=== PATIENT | female | born 1985 | race Caucasian/White ===

== ENCOUNTER 2021-09-08 12:51 | Outpatient (REF) | payer OTHER, SELFPAY ==
[2021-09-08 14:14] LABS: Binax Internal Control QC Valid; Binax Now Covid-19 Ag Negative (Negative)
== END 2021-09-08 12:52 | disposition home or self-care (01) ==
LOC: HO.LAB 12:51
PROVIDERS: Visit Provider Internal Medicine
DX: Z20.822 Contact with and (suspected) exposure to COVID-19 (principal)
CPT/HCPCS: 36415; C9803

== ENCOUNTER 2021-11-27 07:51 | Emergency (ER) | payer OTHER, SELFPAY ==
--- NOTE | ~2021-11-27 | CT_ITS ---
EXAMINATION: CT ABDOMEN AND PELVIS WITH CONTRAST CLINICAL INFORMATION: Left lower quadrant pain. Diarrhea. Evaluate for diverticulitis. COMPARISON: None TECHNIQUE: Multidetector volumetric images were obtained from the superior aspect of the liver through the pubic symphysis following administration 85 mL of Omnipaque 350 intravenous contrast. Sagittal and coronal reformatted images were obtained on the technologist's workstation. Oral contrast: Yes This CT examination was performed using dose optimization techniques as appropriate, variously including the following: *Automated exposure control *Adjustment of mA and/or kV according to patient size (this includes techniques or standardized protocols for targeted exams where dose is matched to indication/reason for exam; i.e. extremities or head) *Use of iterative reconstruction technique DLP: 406 mGy-cm FINDINGS: LUNG BASES: The visualized lung bases are unremarkable. LIVER, GALLBLADDER, AND BILIARY TREE: The liver is normal in size, shape, and attenuation. No focal hepatic lesion or biliary ductal dilatation is present. The gallbladder is unremarkable with no evidence of radiopaque gallstones, gallbladder wall thickening, or obvious pericholecystic inflammatory changes. PANCREAS: Unremarkable. SPLEEN: Unremarkable. ADRENAL GLANDS: Unremarkable. KIDNEYS AND URETERS: The kidneys are normal in size, shape, and attenuation. No hydronephrosis, hydroureter, or calculi seen. No perinephric stranding. BLADDER: The bladder is empty. GASTROINTESTINAL TRACT: No evidence of diverticulitis or colitis is seen. There are several slightly distended fluid-filled loops of small bowel seen in the lower abdomen and pelvis probably representing an ileus. The small and large bowel is otherwise unremarkable. The appendix is unremarkable. The stomach is unremarkable. ABDOMINAL WALL: No significant hernia is appreciated. LYMPH NODES: There are prominent small bowel mesentery lymph nodes.. Largest lymph nodes are upper normal in size, for example right lower quadrant measuring 1 cm axial image 54 series 3. No other adenopathy is seen. There is no ascites. VASCULAR: Unremarkable. PELVIC VISCERA: There is an IUD in the uterus in satisfactory position. The uterus and adnexa are otherwise unremarkable. There is a small right hernial or labial cyst measuring 1 cm. OSSEOUS STRUCTURES: Unremarkable. CT/CT abdomen pelvis w con IMPRESSION: Small bowel ileus and prominent small bowel mesentery lymph nodes. No evidence of colitis or diverticulitis. Fleischner guidelines were followed.
[2021-11-27 08:54] VITALS: BP 117/68; PULSE 78; RESP 16; TEMP 36.6; O2SAT 100; BMI 23.0
--- NOTE | 2021-11-27 09:05 | ED_ITS ---
HPI - Abdominal Pain General Chief Complaint: General Medical Stated Complaint: flank pain l and r sides Time Seen by Provider: 11/27/21 08:46 Source: patient Mode of arrival: ambulatory Limitations: no limitations History of Present Illness HPI narrative: Patient is a 35-year-old female no significant past medical history. She reports that she has been experiencing diarrhea for 2 weeks. Diarrhea is daily at times will have at least 6 episodes of loose watery diarrhea in a day. Her stools are described as dark brown in color. There is associated cramping diffusely throughout the lower abdomen. She has been using Imodium with some relief. Denies any blood or mucus in stools, denies fevers or chills, denies nausea or vomiting. Today she was concerned as she developed bilateral flank/ side pain upon awakening this morning, 5/10, aching and sharp in nature. Denies dysuria, urinary frequency / hesitancy / urgency, abnormal vaginal discharge. Related Data Allergies Allergy/AdvReac Type Severity Reaction Status Date / Time No Known Allergies Allergy Unverified 05/19/20 19:05 [No Known Allergies*] Review of Systems Review of Systems Constitutional : No Weight loss, No Fever, No Chills ENT/Mouth :? No sore throat, No Rhinorrhea Eyes: No Swelling, No Redness Cardiovascular : No Chest Pain, No SOB, No Edema Respiratory : No Cough, No Sputum, No Wheezing Gastrointestinal : No Nausea, No Vomiting, positive Diarrhea, positive abdominal pain, No Hematochezia, No Melena Genitourinary : No Dysuria, No Urinary Frequency, No Hematuria, No Urgency? Musculoskeletal : No joint pain, No Myalgias, No Joint Swelling Skin : No Skin Lesions, No rash Neuro : No Weakness, No Numbness, No Dizziness, No Headache Psych : No Anxiety/Panic, No Depression Heme/Lymph: No Bruising, No Lymphadenopathy Endocrine : No Polyuria, No Polydipsia Yes all other systems are reviewed and are negative PMFSH Past Medical History Attestation statement: The following information was validated with the patient. Source: old records reviewed Medical History No known health problems Social History Social History Advance Directives: No Advance Directives Information Provided: Yes Physical Exam ED Vital Signs: Vital Signs - 24 hr 11/27/21 08:54 11/27/21 10:35 11/27/21 11:22 Temperature 97.9 F 98.5 F Pulse Rate 78 55 Respiratory Rate 16 18 18 Blood Pressure 117/68 111/52 L Pulse Oximetry 100 100 BMI result Body Mass Index 23.0 Vital signs have been reviewed as normal and appeared to be correct. Blood pressure normal.? Heart rate normal.? Respiration rate normal. Temperature normal.? Oxygen saturation normal. Appearance: Alert.?Oriented to person, place and time. No acute distress.?Normal affect. Eyes: Pupils equal, round and reactive to light.? ENT: Pharynx normal.?? Neck: Normal inspection.? Neck supple.?? CVS: Heart sounds normal. Normal heart rate and rhythm.? Pulses normal.?? Respiratory: No respiratory distress.? Lung sounds clear to auscultation bilaterally?? Abdomen: Soft with LLQ tenderness.. Normoactive bowel sounds. No pulsatile mass.?? Genitourinary: no CVA tenderness Skin: Skin warm and dry.? Normal skin color.? Normal skin turgor.?? Extremities: No lower extremity edema.? No calf ttp? Neuro: Moves all extremities spontaneously. Sensation intact bilaterally. CN II- XII intact. No focal neuro deficits. Ambulates with normal steady gait. Course Course Course Narrative: Patient is a 35-year-old female who is well appearing, nontoxic, afebrile, without tachycardia. She presents for evaluation with concern with bilateral side/flank pain of new onset and persistent diarrhea. Will obtain CBC to evaluate for leukocytosis/ anemia, CMP and lipase to evaluate for abnormal electrolytes /abnormal renal function/ abnormal hepatic/biliary function, Urinalysis to evaluate for infection or microscopic hematuria, and CT the abdomen and pelvis given LLQ tenderness to exclude diverticulitis, colitis, or additional intra-abdominal pathologies. Stool studies to be obtained to exclude infectious process. Medicate with Toradol and Tylenol for pain. Reevaluation(s) Reevaluation #1: CBC reveals a mild leukocytosis 12.3 otherwise normal with CMP, lipase unremarkable. urinalysis is unremarkable, urine test negative. CT of the abdomen reveals a small bowel ileus and prominent small bowel mesentery lymph nodes but no evidence of colitis or diverticulitis. consulted general s urgery revenue enforcement collection agent, Dr. Hughes, He does not feel that patient is a surgical candidate. Time: 12:16 Reevaluation #2: I spoke with patient, used shared decision making, reviewed options for admission to the hospital to receive IV fluids and bowel rest. Patient states that she would prefer to go home, she has her child at home and no one to take care of her. Discussed clear liquid diet with slow progression bland diet including crackers, bananas, rice, soup, toast, and coiled vegetables followed by plain backed or boiled chicken or turkey, avoiding dairy products or foods high in fat agrees. Discussed reasons to return to the emergency department, such as if she is unable to tolerate fluids, has severe/ worsening pain, nausea with persistent vomiting, or inability to move bowels. Advised follow-up with primary care provider in 1-2 days Patient is agreeable with the plan of care. patient has had no episodes of diarrhea while in the emergency department, therefore unable to send stool specimen for studies Time: 12:35 MDM - Abdominal Pain Medical Records Attestation: I reviewed the patient's medical records. Lab Data Attestation: I reviewed the patient's lab results. Result diagrams: 11/27/21 09:26 11/27/21 09:26 Labs: Lab Results 11/27/21 11/27/21 11/27/21 Range/Units 09:26 09:26 10:32 WBC 12.3 H (4.8-10.8) X10*3/uL RBC 4.29 (4.20-5.50) X10*6/uL Hgb 12.0 (12.0-16.0) g/dl Hct 35.8 L (37.0-47.0) % MCV 83.4 (80.0-98.0) fL MCH 28.0 (27.0-33.0) pg MCHC 33.5 (31.0-35.0) g/dl RDW 13.6 (11.0-16.0) % Plt Count 316 (160-400) X10*3/uL MPV 9.4 (9.4-12.3) fL Immature Gran % (Auto) 0.3 (0.0-0.4) % Neut % (Auto) 69.8 (45-73) % Lymph % (Auto) 23.8 (20-40) % [place] % (Auto) 5.7 (2-11) % Eos % (Auto) 0.2 (0-4) % Baso % (Auto) 0.2 (0-2) % Lymph # (Auto) 2.9 (1.2-4.9) X10*3/uL [place] # (Auto) 0.7 (0.1-1.2) X10*3/uL Eos # (Auto) 0.0 (0.0-0.4) X10*3/uL Baso # (Auto) 0.0 (0.0-0.2) X10*3/uL Abs Immat Gran (auto) 0.04 H (0.00-0.03) X10*3/uL Absolute Neuts (auto) 8.5 H (2.0-8.3) x10*3/uL Absolute Nucleated RBC 0.000 (0.0-0.012) X10*3/uL Nucleated RBC % (auto) 0.0 (0.0-0.2) /100WBC Sodium 136 (135-145) mmol/L Potassium 4.4 (3.3-5.1) mmol/L Chloride 105 (96-108) mmol/L Carbon Dioxide 23 (22-29) mmol/L Anion Gap 12 (12-20) BUN 16 (9-16) mg/dL Creatinine 0.70 (0.5-1.4) mg/dL Estim Creat Clear Calc 93.7 Estimated GFR > 60 Random Glucose 97 (60-115) mg/dL Calcium 8.9 (8.4-10.2) mg/dL Magnesium 2.0 (1.6-2.6) mg/dL Total Bilirubin 0.3 (0.0-1.0) mg/dL AST 15 (5-31) U/L ALT 12 (0-31) U/L Alkaline Phosphatase 78 (39-117) U/L Total Protein 7.1 (6.5-8.0) g/dL Albumin 3.9 (3.5-5.0) g/dL Lipase 32 (8-78) U/L Urine Color YELLOW Urine Appearance CLEAR Urine pH 5.5 (5.0-8.0) Ur Specific [place] 1.020 (1.005-1.025) Urine Protein NEG (NEG-TRACE) MG/DL Urine Glucose (UA) NEG (NEG) MG/DL Urine Ketones NEG (NEG) MG/DL Urine Blood NEG (NEG) Urine Nitrite NEG (NEG) Ur Leukocyte Esterase NEG (NEG) Urine Test (NEGATIVE) 11/27/21 Range/Units 10:32 WBC (4.8-10.8) X10*3/uL RBC (4.20-5.50) X10*6/uL Hgb (12.0-16.0) g/dl Hct (37.0-47.0) % MCV (80.0-98.0) fL MCH (27.0-33.0) pg MCHC (31.0-35.0) g/dl RDW (11.0-16.0) % Plt Count (160-400) X10*3/uL MPV (9.4-12.3) fL Immature Gran % (Auto) (0.0-0.4) % Neut % (Auto) (45-73) % Lymph % (Auto) (20-40) % [place] % (Auto) (2-11) % Eos % (Auto) (0-4) % Baso % (Auto) (0-2) % Lymph # (Auto) (1.2-4.9) X10*3/uL [place] # (Auto) (0.1-1.2) X10*3/uL Eos # (Auto) (0.0-0.4) X10*3/uL Baso # (Auto) (0.0-0.2) X10*3/uL Abs Immat Gran (auto) (0.00-0.03) X10*3/uL Absolute Neuts (auto) (2.0-8.3) x10*3/uL Absolute Nucleated RBC (0.0-0.012) X10*3/uL Nucleated RBC % (auto) (0.0-0.2) /100WBC Sodium (135-145) mmol/L Potassium (3.3-5.1) mmol/L Chloride (96-108) mmol/L Carbon Dioxide (22-29) mmol/L Anion Gap (12-20) BUN (9-16) mg/dL Creatinine (0.5-1.4) mg/dL Estim Creat Clear Calc Estimated GFR Random Glucose (60-115) mg/dL Calcium (8.4-10.2) mg/dL Magnesium (1.6-2.6) mg/dL Total Bilirubin (0.0-1.0) mg/dL AST (5-31) U/L ALT (0-31) U/L Alkaline Phosphatase (39-117) U/L Total Protein (6.5-8.0) g/dL Albumin (3.5-5.0) g/dL Lipase (8-78) U/L Urine Color Urine Appearance Urine pH (5.0-8.0) Ur Specific [place] (1.005-1.025) Urine Protein (NEG-TRACE) MG/DL Urine Glucose (UA) (NEG) MG/DL Urine Ketones (NEG) MG/DL Urine Blood (NEG) Urine Nitrite (NEG) Ur Leukocyte Esterase (NEG) Urine Test NEGATIVE (NEGATIVE) Imaging Data CT scan - abdomen: Radiologist's impression: CT/CT abdomen pelvis w con IMPRESSION: Small bowel ileus and prominent small bowel mesentery lymph nodes. No evidence of colitis or diverticulitis. Discharge Plan Discharge Clinical Impression: Ileus, Gastroenteritis Patient Disposition: Home, Self-Care Instructions: Acute Diarrhea (ED), Ileus (ED) Additional Instructions: Please follow a clear liquid diet today with slow progression bland diet including crackers, bananas, rice, soup, toast, and coiled vegetables followed by plain backed or boiled chicken or turkey, avoiding dairy products or foods high in fat or grease. Please to return to the emergency department for any new worsening symptoms or concerns, this may include unable to tolerate fluids, severe/ worsening pain, nausea with persistent vomiting, or inability to move bowels. Please follow-up with primary care provider in 1-2 days. Stand Alone Forms: Work/School Release Interventions: ED Discharge Assessment Last Done: 11/27/21 13:00 Discharge Date/Time: 11/27/21 13:01
[2021-11-27 09:30] LABS: MANUAL DIFF FLAG NO
[2021-11-27] MEDS: Ketorolac Tromethamine 30 MG/ML VIAL IM (09:32)
[2021-11-27] MEDS: Acetaminophen 325 MG TABLET 975 MG PO (09:32)
[2021-11-27 09:41] LABS: Basophils Percent Auto 0.2 % (0-2); Eosinophils Percent Auto 0.2 % (0-4); Hematocrit 35.8 % (37.0-47.0); Imm Gran Abs Auto 0.04 X10*3/uL (0.00-0.03); Imm Gran Pct Auto 0.3 % (0.0-0.4); Lymphocytes Absolute Auto 2.9 X10*3/uL (1.2-4.9); Lymphocytes Percent Auto 23.8 % (20-40); Mean Corpuscular HGB Conc 33.5 g/dl (31.0-35.0); Mean Corpuscular Volume 83.4 fL (80.0-98.0); Mean Platelet Volume 9.4 fL (9.4-12.3); Monocytes Absolute Auto 0.7 X10*3/uL (0.1-1.2); Monocytes Percent Auto 5.7 % (2-11); Neutrophils Absolute Auto 8.5 x10*3/uL (2.0-8.3); Neutrophils Percent Auto 69.8 % (45-73); Platelet Count 316 X10*3/uL (160-400); Red Blood Count 4.29 X10*6/uL (4.20-5.50); Red Cell Distribution Width 13.6 % (11.0-16.0); White Blood Count 12.3 X10*3/uL (4.8-10.8)
[2021-11-27 09:49] LABS: Alanine Aminotransferase 12 U/L (0-31); Albumin Level 3.9 g/dL (3.5-5.0); Alkaline Phosphatase 78 U/L (39-117); Anion Gap 12 (12-20); Aspartate Amino Transferase 15 U/L (5-31); Bilirubin Total 0.3 mg/dL (0.0-1.0); Blood Urea Nitrogen 16 mg/dL (9-16); Calcium 8.9 mg/dL (8.4-10.2); Carbon Dioxide 23 mmol/L (22-29); Chloride 105 mmol/L (96-108); Creatinine Clr Calc Pharmacy 93.7; Estimated Glomerular Filt Rate > 60; Glucose Random 97 mg/dL (60-115); Lipase 32 U/L (8-78); Potassium 4.4 mmol/L (3.3-5.1); Sodium 136 mmol/L (135-145); Total Protein 7.1 g/dL (6.5-8.0)
[2021-11-27 10:35] VITALS: RESP 18
[2021-11-27 10:39] LABS: Appearance Urine CLEAR; Color Urine YELLOW; Glucose Urine UA NEG (NEG); Leukocyte Esterase Urine NEG (NEG); Nitrite Urine NEG (NEG); PH 5.5 (5.0-8.0); Urine Blood NEG (NEG); Urine Ketones NEG (NEG); Urine Protein NEG (NEG-TRACE)
[2021-11-27 10:40] LABS: UPreg QC Valid YES; Urine Pregnancy NEGATIVE (NEGATIVE)
[2021-11-27] MEDS: iohexoL 350 MG/ML 100 ML INFUS..BTL IV (11:12)
[2021-11-27 11:22] VITALS: BP 111/52; PULSE 55; RESP 18; TEMP 36.9; O2SAT 100
--- NOTE | 2021-11-27 13:26 | ED_ITS ---
HPI - General Adult General Chief complaint: General Medical Stated complaint: flank pain l and r sides Time Seen by Provider: 11/27/21 08:46 Source: patient Mode of arrival: ambulatory Limitations: no limitations Related Data Allergies Allergy/AdvReac Type Severity Reaction Status Date / Time No Known Allergies Allergy Unverified 05/19/20 19:05 [No Known Allergies*] REPLACED BY [facility] Past Medical History Medical History No known health problems Social History Social History Advance Directives: No Advance Directives Information Provided: Yes Physical Exam ED Vital Signs: Vital Signs - 24 hr 11/27/21 08:54 11/27/21 10:35 11/27/21 11:22 Temperature 97.9 F 98.5 F Pulse Rate 78 55 Respiratory Rate 16 18 18 Blood Pressure 117/68 111/52 L Pulse Oximetry 100 100 BMI result Body Mass Index 23.0 Medical Decision Making Lab Data Result diagrams: 11/27/21 09:26 11/27/21 09:26 Labs: Lab Results 11/27/21 11/27/21 11/27/21 Range/Units 09:26 09:26 10:32 WBC 12.3 H (4.8-10.8) X10*3/uL RBC 4.29 (4.20-5.50) X10*6/uL Hgb 12.0 (12.0-16.0) g/dl Hct 35.8 L (37.0-47.0) % MCV 83.4 (80.0-98.0) fL MCH 28.0 (27.0-33.0) pg MCHC 33.5 (31.0-35.0) g/dl RDW 13.6 (11.0-16.0) % Plt Count 316 (160-400) X10*3/uL MPV 9.4 (9.4-12.3) fL Immature Gran % (Auto) 0.3 (0.0-0.4) % Neut % (Auto) 69.8 (45-73) % Lymph % (Auto) 23.8 (20-40) % [place] % (Auto) 5.7 (2-11) % Eos % (Auto) 0.2 (0-4) % Baso % (Auto) 0.2 (0-2) % Lymph # (Auto) 2.9 (1.2-4.9) X10*3/uL [place] # (Auto) 0.7 (0.1-1.2) X10*3/uL Eos # (Auto) 0.0 (0.0-0.4) X10*3/uL Baso # (Auto) 0.0 (0.0-0.2) X10*3/uL Abs Immat Gran (auto) 0.04 H (0.00-0.03) X10*3/uL Absolute Neuts (auto) 8.5 H (2.0-8.3) x10*3/uL Absolute Nucleated RBC 0.000 (0.0-0.012) X10*3/uL Nucleated RBC % (auto) 0.0 (0.0-0.2) /100WBC Sodium 136 (135-145) mmol/L Potassium 4.4 (3.3-5.1) mmol/L Chloride 105 (96-108) mmol/L Carbon Dioxide 23 (22-29) mmol/L Anion Gap 12 (12-20) BUN 16 (9-16) mg/dL Creatinine 0.70 (0.5-1.4) mg/dL Estim Creat Clear Calc 93.7 Estimated GFR > 60 Random Glucose 97 (60-115) mg/dL Calcium 8.9 (8.4-10.2) mg/dL Magnesium 2.0 (1.6-2.6) mg/dL Total Bilirubin 0.3 (0.0-1.0) mg/dL AST 15 (5-31) U/L ALT 12 (0-31) U/L Alkaline Phosphatase 78 (39-117) U/L Total Protein 7.1 (6.5-8.0) g/dL Albumin 3.9 (3.5-5.0) g/dL Lipase 32 (8-78) U/L Urine Color YELLOW Urine Appearance CLEAR Urine pH 5.5 (5.0-8.0) Ur Specific [place] 1.020 (1.005-1.025) Urine Protein NEG (NEG-TRACE) MG/DL Urine Glucose (UA) NEG (NEG) MG/DL Urine Ketones NEG (NEG) MG/DL Urine Blood NEG (NEG) Urine Nitrite NEG (NEG) Ur Leukocyte Esterase NEG (NEG) Urine Test (NEGATIVE) 11/27/21 Range/Units 10:32 WBC (4.8-10.8) X10*3/uL RBC (4.20-5.50) X10*6/uL Hgb (12.0-16.0) g/dl Hct (37.0-47.0) % MCV (80.0-98.0) fL MCH (27.0-33.0) pg MCHC (31.0-35.0) g/dl RDW (11.0-16.0) % Plt Count (160-400) X10*3/uL MPV (9.4-12.3) fL Immature Gran % (Auto) (0.0-0.4) % Neut % (Auto) (45-73) % Lymph % (Auto) (20-40) % [place] % (Auto) (2-11) % Eos % (Auto) (0-4) % Baso % (Auto) (0-2) % Lymph # (Auto) (1.2-4.9) X10*3/uL [place] # (Auto) (0.1-1.2) X10*3/uL Eos # (Auto) (0.0-0.4) X10*3/uL Baso # (Auto) (0.0-0.2) X10*3/uL Abs Immat Gran (auto) (0.00-0.03) X10*3/uL Absolute Neuts (auto) (2.0-8.3) x10*3/uL Absolute Nucleated RBC (0.0-0.012) X10*3/uL Nucleated RBC % (auto) (0.0-0.2) /100WBC Sodium (135-145) mmol/L Potassium (3.3-5.1) mmol/L Chloride (96-108) mmol/L Carbon Dioxide (22-29) mmol/L Anion Gap (12-20) BUN (9-16) mg/dL Creatinine (0.5-1.4) mg/dL Estim Creat Clear Calc Estimated GFR Random Glucose (60-115) mg/dL Calcium (8.4-10.2) mg/dL Magnesium (1.6-2.6) mg/dL Total Bilirubin (0.0-1.0) mg/dL AST (5-31) U/L ALT (0-31) U/L Alkaline Phosphatase (39-117) U/L Total Protein (6.5-8.0) g/dL Albumin (3.5-5.0) g/dL Lipase (8-78) U/L Urine Color Urine Appearance Urine pH (5.0-8.0) Ur Specific [place] (1.005-1.025) Urine Protein (NEG-TRACE) MG/DL Urine Glucose (UA) (NEG) MG/DL Urine Ketones (NEG) MG/DL Urine Blood (NEG) Urine Nitrite (NEG) Ur Leukocyte Esterase (NEG) Urine Test NEGATIVE (NEGATIVE) Discharge Plan Discharge Clinical Impression: Ileus, Gastroenteritis Patient Disposition: Home, Self-Care Instructions: Acute Diarrhea (ED), Ileus (ED) Additional Instructions: Please follow a clear liquid diet today with slow progression bland diet incl uding crackers, bananas, rice, soup, toast, and coiled vegetables followed by plain backed or boiled chicken or turkey, avoiding dairy products or foods high in fat or grease. Please to return to the emergency department for any new worsening symptoms or concerns, this may include unable to tolerate fluids, severe/ worsening pain, nausea with persistent vomiting, or inability to move bowels. Please follow-up with primary care provider in 1-2 days. Stand Alone Forms: Work/School Release Interventions: ED Discharge Assessment Last Done: 11/27/21 13:00 Discharge Date/Time: 11/27/21 13:01
== END 2021-11-27 13:01 | disposition home or self-care (01) ==
PROVIDERS: Nurse Practitioner Family; Emergency Provider Emergency Medicine
DX: K52.89 Other specified noninfective gastroenteritis and colitis (principal); K56.7 Ileus, unspecified; R10.9 Unspecified abdominal pain
CPT/HCPCS: 36415; 74177; 80053; 81003; 81025; 83690; 83735; 85025; 96372; 99284; J1885; Q9967

== ENCOUNTER 2021-12-20 07:56 | Emergency (ER) | payer OTHER, SELFPAY ==
--- NOTE | 2021-12-20 08:13 | ED.GENADULT ---
HPI - General Adult General Chief complaint: Upper Respiratory Symptoms <REGLA Agrawal Last Filed: 12/20/21 09:23> Stated complaint: cough runny nose <REGLA Agrawal - Last Filed: 12/20/21:23> Time Seen by Provider: 12/20/21 08:13 <REGLA Agrawal Last Filed: 12/20/21 09:23> Source: patient <REGLA Agrawal Last Filed: 12/20/21:23> Mode of arrival: ambulatory <REGLA Agrawal Last Filed: 12/20/21:23> Limitations: no limitations <REGLA Agrawal Last Filed: 12/20/21:23> History of Present Illness HPI narrative: Patient is a 36 year old female presenting to the emergency department today with a cough and a runny nose. Patient states that since Saturday, she has had a dry cough and a runny nose. Patient states that she was around someone at work who tested positive for COVID-19. Patient denies any dizziness, lightheadedness, abdominal pain, nausea, vomiting, fever, chills, blurry vision, double vision, loss of vision, chest pain, difficulty breathing, shortness of breath, back pain, night sweats, pain with urination, increased urinary frequency, increased urinary urgency, blood in her urine or stool, syncope or a near syncopal episode, recent trauma or falls, bowel incontinence, bladder incontinence, bowel retention, bladder retention, or any other complaints at this time. <REGLA Agrawal Last Filed: 12/20/21:23> Onset (ago): day(s) (2) <REGLA Agrawal - Last Filed: 12/20/21:23> Relieving factors: none <REGLA Agrawal Last Filed: 12/20/21:23> Exacerbating factors: none <REGLA Agrawal Last Filed: 12/20/21:23> Associated symptoms: cough <REGLA Agrawal Last Filed: 12/20/21:23> Treatments prior to arrival: none <REGLA Agrawal Last Filed: 12/20/21 09:23> Related Data Allergies/adverse reactions: Allergies Allergy/AdvReac Type Severity Reaction Status Date / Time No Known Allergies Allergy Unverified 05/19/20 19:05 [No Known Allergies*] <REGLA Agrawal Last Filed: 12/20/21 09:23> Review of Systems Constitutional: Constitutional: Reports no additional constitutional complaints, Denies chills, Denies fever(s) and Denies night sweats <REGLA Agrawal Last Filed: 12/20/21 09:23> Eyes: Eyes: Reports no additional eye complaints, Denies blurry vision, Denies change in vision, Denies diplopia, Denies eye discharge, Denies loss of vision and Denies eye pain <REGLA Agrawal Last Filed: 12/20/21 09:23> ENT: Denies dizziness and Reports nasal congestion <REGLA Agrawal Last Filed: 12/20/21 09:23> Cardiovascular: Cardiovascular: Reports no additional cardiovascular complaints, Denies chest pain, Denies lightheadedness, Denies Loss of Consciousness and Denies dyspnea <REGLA Agrawal Last Filed: 12/20/21 09:23> Respiratory: Respiratory: Reports no additional respiratory complaints, Reports cough and Denies dyspnea <REGLA Agrawal Last Filed: 12/20/21 09:23> Gastrointestinal: Gastrointestinal: Reports no additional gastrointestinal complaints, Denies abdominal pain, Denies melena, Denies hematochezia, Denies change in bowel habits and Denies change in stool character <REGLA Agrawal Last Filed: 12/20/21 09:23> Genitourinary: Genitourinary: Denies hematuria, Denies urinary frequency, Denies dysuria, Denies urinary incontinence, Denies urinary hesitancy and Denies urinary urgency <REGLA Agrawal Last Filed: 12/20/21 09:23> Musculoskeletal: Musculoskeletal: Reports no additional musculoskeletal complaints, Denies numbness and Denies tingling <REGLA Agrawal Last Filed: 12/20/21 09:23> Neurologic: Denies dizziness, Denies loss of vision, Denies numbness and Denies tingling <REGLA Agrawal Last Filed: 12/20/21 09:23> Psychiatric: Psychiatric: Reports no additional psychiatric complaints <REGLA Agrawal - Last Filed: 12/20/21 09:23> Endocrine: Endocrine: Reports no additional endocrine complaints <REGLA Agrawal - Last Filed: 12/20/21 09:23> Hematologic/Lymphatic: Hematologic/Lymphatic: Reports no additional hematologic/lymphatic complaints <REGLA Agrawal - Last Filed: 12/20/21 09:23> Allergic/Immunologic: Allergic/Immunologic: Reports no additional allergic/immunologic complaints <REGLA Agrawal - Last Filed: 12/20/21 09:23> PMFSH Past Medical History Attestation statement: The following information was validated with the patient. <REGLA Agrawal - Last Filed: 12/20/21 09:23> Source: old records reviewed <REGLA Agrawal - Last Filed: 12/20/21 09:23> Medical History: Medical History No known health problems <REGLA Agrawal - Last Filed: 12/20/21 09:23> Social History Social History: Social History Alcohol intake: never Patient Tobacco Use Status: Current everyday Tobacco user Use of substances other than those prescribed or required for medical reasons: No Advance Directives: No Advance Directives Information Provided: Yes Patient : No <REGLA Agrawal - Last Filed: 12/20/21 09:23> Physical Exam ED Vital Signs: Vital Signs - 24 hr 12/20/21 08:23 12/20/21 08:26 Temperature 97.5 F Pulse Rate 70 Respiratory Rate 13 Blood Pressure 108/73 Pulse Oximetry 100 100 BMI result Body Mass Index 22.8 <REGLA Agrawal - Last Filed: 12/20/21 09:23> Const General: cooperative, no acute distress, alert and awake <REGLA Agrawal - Last Filed: 12/20/21 09:23> Nutritional Appearance: well nourished <REGLA Agrawal - Last Filed: 12/20/21 09:23> Orientation/consciousness: patient oriented x3 <REGLA Agrawal - Last Filed: 12/20/21 09:23> Limitations: no limitations <Luisana Niño [facility] Last Filed: 12/20/21 09:23> HENMT Head: Yes normal to inspection and Yes atraumatic <Luisana Niño [place] - Last Filed: 12/20/21 09:23> Ears: hearing grossly normal bilaterally and external ears normal <Luisana Niño [facility] Last Filed: 12/20/21 09:23> General nose exam: Normal external nose present, no nasal discharge noted and no epistaxis <Luisana Niño [place] - Last Filed: 12/20/21 09:23> Face and sinus: Yes normal facial exam, No abrasion and No laceration <Luisana Niño CO - Last Filed: 12/20/21 09:23> Mouth: Normal oral and palatal mucosa present, no drooling and no muffled voice <Luisana Niño [place] - Last Filed: 12/20/21 09:23> Eyes General: appearance normal, both eyes and all related structures <Luisana Niño [place] - Last Filed: 12/20/21 09:23> Periorbital: periorbital findings normal <Luisana Niño CO - Last Filed: 12/20/21 09:23> Eyelids: Yes eyelids normal <Luisana Niño [place] - Last Filed: 12/20/21 09:23> Conjunctivae: conjunctivae normal <Luisana Niño CO - Last Filed: 12/20/21 09:23> Pupils: Equal, round and reactive pupils present <Luisana Niño CO - Last Filed: 12/20/21 09:23> EOM: EOMs intact bilaterally <Luisana Niño CO - Last Filed: 12/20/21 09:23> Neck Neck: Yes normal visual inspection, Yes full ROM and Yes no lymphadenopathy <REGLA Agrawal - Last Filed: 12/20/21 09:23> Chest Chest palpation & inspection: normal inspection of the chest <REGLA Agrawal - Last Filed: 12/20/21 09:23> Resp Effort & Inspection: normal respiratory effort and able to speak in complete sentences <REGLA Agrawal - Last Filed: 12/20/21 09:23> Auscultation: clear to auscultation bilaterally <Luisana Niño PA - Last Filed: 12/20/21 09:23> Cardio Rate: regular rate <REGLA Agrawal - Last Filed: 12/20/21 09:23> Rhythm: regular rhythm <Luisana REGLA Niño - Last Filed: 12/20/21 09:23> GI Inspection: Yes normal to inspection <REGLA Agrawal - Last Filed: 12/20/21 09:23> Neuro General: patient oriented x3 and moves all extremities <Luisana Niño PA - Last Filed: 12/20/21 09:23> Cranial nerves: Yes Equal, round and reactive pupils present <Luisana Niño PA - Last Filed: 12/20/21 09:23> Cognition (Neuro): normal cognition <REGLA Agrawal - Last Filed: 12/20/21 09:23> Motor exam (neuro): 5/5 motor strength present throughout <REGLA Agrawal - Last Filed: 12/20/21 09:23> Sensory Exam: Normal double simultaneous stimulation for sensation <Luisana Niño PA - Last Filed: 12/20/21 09:23> Coordination: [id number] test normal <Luisana Niño PA - Last Filed: 12/20/21 09:23> Extrem General: Yes normal to inspection, Yes full ROM and Yes capillary refill normal <Luisana Niño PA - Last Filed: 12/20/21 09:23> Psych Appearance: grossly normal <REGLA Agrawal - Last Filed: 12/20/21 09:23> Mental Status: mental status grossly normal <REGLA Agrawal - Last Filed: 12/20/21 09:23> Affect: normal affect <REGLA Agrawal - Last Filed: 12/20/21 09:23> Attitude: cooperative <REGLA Agrawal - Last Filed: 12/20/21 09:23> Thought process: Normal thought process present <REGLA Agrawal - Last Filed: 12/20/21 09:23> Thought content: Normal thought content present <REGLA Agrawal - Last Filed: 12/20/21 09:23> Insight: Good insight present (Psych) <LuisanaREGLA Olmos Last Filed: 12/20/21 09:23> Medical Decision Making MDM Narrative Medical decision making narrative: Patient is a 36 year old female presenting to the emergency department today with a cough and runny nose. Patient's physical exam was unremarkable. Patient's rapid COVID-19 test was positive and her rapid influenza test was negative. I explained my physical exam findings as well as all test results to the patient. I answered all questions asked by the patient. I stressed the importance of the patient following all recommendations for COVID-19 as set by the CDC. I stressed the importance of the patient taking her medication as prescribed. I stressed the importance of the patient following up with her primary care provider. I stressed the importance of the patient returning to the emergency department immediately if her symptoms were to worsen or if she were to develop any dizziness, shortness of breath, difficulty breathing, chest pain, blurry vision, loss of vision, nausea, vomiting, abdominal pain, fever, chills, back pain, or any other complaints. Patient verbalized agreement and understanding with this treatment plan and discharge. <REGLA Agrawal - Last Filed: 12/20/21 09:23> Differential Diagnosis Differential Diagnosis: COVID-19, influenza, URI <REGLA Agrawal Last Filed: 12/20/21 09:23> Medical Records Medical records reviewed: Yes I reviewed the patient's medical records. <REGLA Agrawal Last Filed: 12/20/21 09:23> Lab Data Lab results reviewed: Yes I reviewed the patient's lab results. <REGLA Agrawal Last Filed: 12/20/21 09:23> Labs: Lab Results 12/20/21 12/20/21 Range/Units 08:27 08:27 COVID-19 ([facility]E) Positive A (Negative) COVID-19 Clin Com See Note Influenza Type A (JUANPABLO) Negative (Negative) Influenza Type B (JUANPABLO) Negative (Negative) Influenza A & B Note See Note <REGLA Agrawal Last Filed: 12/20/21 09:23> Discharge Plan Discharge Clinical Impression: COVID-19 <REGLA Agrawal Last Filed: 12/20/21 09:23> Patient Disposition: Home, Self-Care <REGLA Agrawal Last Filed: 12/20/21 09:23> Instructions: COVID-19 (Coronavirus Disease 2019) (ED) <REGLA Agrawal - Last Filed: 12/20/21 09:23> Additional Instructions: Call if you need to discuss finding and establishing with a primary care provider. Return to the emergency department immediately if your symptoms worsen or if you develop any dizziness, shortness of breath, difficulty breathing, chest pain, blurry vision, loss of vision, nausea, vomiting, abdominal pain, fever, chills, back pain, or any other complaints. <REGLA Agrawal - Last Filed: 12/20/21 09:23> Referrals: Physician,None [Primary Care Provider] - (Follow up with your PCP. ) <REGLA Agrawal - Last Filed: 12/20/21 09:23> Stand Alone Forms: Work/School Release <REGLA Agrawal - Last Filed: 12/20/21 09:23> Interventions: ED Discharge Assessment Last Done: 12/20/21 09:11 <REGLA Agrawal - Last Filed: 12/20/21 09:23> Discharge Date/Time: 12/20/21 09:13 <REGLA Agrawal - Last Filed: 12/20/21 09:23> Print Language: Mosotho <REGLA Agrawal - Last Filed: 12/20/21 09:23>
[2021-12-20 08:23] VITALS: BP 108/73; PULSE 70; RESP 13; TEMP 36.4; O2SAT 100; BMI 22.8
[2021-12-20 08:26] VITALS: PULSE 71; O2SAT 100
[2021-12-20 08:39] LABS: COVID-19 Test Positive (Negative)
[2021-12-20 08:49] LABS: IDNOW Serial# 16C4AD1C; Influenza A Negative (Negative); Influenza B2 Negative (Negative)
== END 2021-12-20 09:13 | disposition home or self-care (01) ==
PROVIDERS: Physician Assistant Medical; Emergency Provider Emergency Medicine
DX: U07.1 COVID-19 (principal)
CPT/HCPCS: 87502; 87635; 99283; 99284

== ENCOUNTER 2022-01-23 07:38 | Emergency (ER) | payer OTHER, SELFPAY ==
[2022-01-23 07:46] VITALS: BP 105/70; PULSE 74; RESP 14; TEMP 36.2; O2SAT 99; BMI 23.0
[2022-01-23 08:09] LABS: Appearance Urine CLEAR; Color Urine YELLOW; Glucose Urine UA NEG (NEG); Leukocyte Esterase Urine NEG (NEG); Nitrite Urine NEG (NEG); Specific Gravity - Urine >= 1.030 (1.005-1.025); Urine Blood NEG (NEG); Urine Ketones NEG (NEG); Urine Protein NEG (NEG-TRACE)
[2022-01-23 08:13] LABS: UPreg QC Valid YES; Urine Pregnancy NEGATIVE (NEGATIVE)
[2022-01-23 09:20] LABS: MANUAL DIFF FLAG NO
[2022-01-23 09:21] LABS: OBS Int Ctl Valid YES; OBS1 NEGATIVE (NEGATIVE)
[2022-01-23 09:22] LABS: Basophils Percent Auto 0.2 % (0-2); Eosinophils Percent Auto 0.1 % (0-4); Hematocrit 38.5 % (37.0-47.0); Hemoglobin 12.1 g/dl (12.0-16.0); Imm Gran Abs Auto 0.05 X10*3/uL (0.00-0.03); Imm Gran Pct Auto 0.4 % (0.0-0.4); Lymphocytes Absolute Auto 3.5 X10*3/uL (1.2-4.9); Lymphocytes Percent Auto 27.3 % (20-40); Mean Corpuscular HGB Conc 31.4 g/dl (31.0-35.0); Mean Corpuscular Hemoglobin 26.8 pg (27.0-33.0); Mean Corpuscular Volume 85.4 fL (80.0-98.0); Mean Platelet Volume 9.1 fL (9.4-12.3); Monocytes Absolute Auto 0.7 X10*3/uL (0.1-1.2); Monocytes Percent Auto 5.3 % (2-11); Neutrophils Absolute Auto 8.5 x10*3/uL (2.0-8.3); Neutrophils Percent Auto 66.7 % (45-73); Platelet Count 322 X10*3/uL (160-400); Red Blood Count 4.51 X10*6/uL (4.20-5.50); Red Cell Distribution Width 14.6 % (11.0-16.0); White Blood Count 12.7 X10*3/uL (4.8-10.8)
[2022-01-23] MEDS: Magnesium Hydrox/Alum Hydrox 30 ML ORAL.SUSP PO (09:36)
[2022-01-23] MEDS: Famotidine 20 MG TABLET PO (09:36)
[2022-01-23] MEDS: Dicyclomine HCl 10 MG CAPSULE 20 MG PO (09:36)
[2022-01-23 09:40] LABS: Alanine Aminotransferase 13 U/L (0-31); Alkaline Phosphatase 82 U/L (39-117); Anion Gap 10 (12-20); Aspartate Amino Transferase 15 U/L (5-31); Bilirubin Direct < 0.2 mg/dL (0.0-0.5); Bilirubin Total 0.2 mg/dL (0.0-1.0); Blood Urea Nitrogen 15 mg/dL (9-16); Carbon Dioxide 24 mmol/L (22-29); Chloride 108 mmol/L (96-108); Creatinine Clr Calc Pharmacy 85.4; Estimated Glomerular Filt Rate > 60; Glucose Random 84 mg/dL (60-115); Lipase 55 U/L (8-78); Magnesium 1.9 mg/dL (1.6-2.6); Potassium 4.5 mmol/L (3.3-5.1); Sodium 137 mmol/L (135-145); Total Protein 7.4 g/dL (6.5-8.0)
[2022-01-23 10:42] VITALS: BP 107/67; PULSE 56; RESP 16; O2SAT 100
[2022-01-23 10:52] VITALS: RESP 18
--- NOTE | 2022-01-23 10:52 | ED.ABDPAIN ---
HPI - Abdominal Pain General Chief Complaint: Abdominal Pain Stated Complaint: Abd pain Time Seen by Provider: 01/23/22 08:50 Source: patient Mode of arrival: ambulatory History of Present Illness HPI narrative: 36-year-old female with a past medical history of COVID-19, gastroenteritis, hemorrhoids, presenting to the ED complaining intermittent abdominal cramping times with associated diarrhea. Admits has been seen in the ED for similar symptoms, states does not have PCP, and cannot find medications that work for her pain. Admits to dark stool, denies bloody BMs. Denies fever, chills, nausea, vomiting, dysuria /hematuria, flank pain, vaginal bleeding/ discharge. MD elicited complaint: abdominal pain Onset (ago): week(s) Related Data Previous Rx's Medication Instructions Recorded aluminum-mag hydroxide-simethicone 5 ml PO 5XD PRN #30 ml 01/23/22 200 mg-200 mg-20 mg/5 mL oral susp (Maalox Advanced) dicyclomine 20 mg tablet 20 mg PO QID PRN #20 tab 01/23/22 famotidine 20 mg tablet (Pepcid) 20 mg PO DAILY #14 tab 01/23/22 Allergies Allergy/AdvReac Type Severity Reaction Status Date / Time No Known Allergies Allergy Unverified 05/19/20 19:05 [No Known Allergies*] Review of Systems Review of Systems Constitutional: No Fever, No Chills, No Fatigue, No Malaise ENT/Mouth: No Ear Pain, No Nasal Congestion, No Sinus Pain, No Hoarseness, No sore throat, No Rhinorrhea, No Swallowing Difficulty Eyes: No Eye Pain, No Swelling, No Redness Cardiovascular: No Chest Pain, No SOB, No Edema, No Palpitations Respiratory: No Cough, No Sputum, No Wheezing, No Smoke Exposure, No Dyspnea Gastrointestinal: No Nausea, No Vomiting, + Diarrhea, No Constipation, +Abdominal pain, No Hematochezia, + Melena Genitourinary: No irregular bleeding, No Dysuria, No Urinary Frequency, No Hematuria, No Urinary Incontinence/retention, No Flank Pain, No Urinary Flow Changes, No Hesitancy Musculoskeletal: No joint pain, No Myalgias, No Joint Swelling Skin: No Skin Lesions, No rash Neuro: No Weakness, No Numbness, No Dizziness, No Headache Yes all other systems are reviewed and are negative PMFSH Past Medical History Attestation statement: The following information was validated with the patient. Medical History No known health problems Social History Social History Alcohol intake: never Patient Tobacco Use Status: Current everyday Tobacco user Advance Directives: No Advance Directives Information Provided: No Physical Exam ED Vital Signs: Vital Signs - 24 hr 01/23/22 07:46 01/23/22 10:42 01/23/22 10:52 Temperature 97.1 F Pulse Rate 74 56 Respiratory Rate 14 16 18 Blood Pressure 105/70 107/67 Pulse Oximetry 99 100 BMI result Body Mass Index 23.0 Const General: cooperative, healthy appearing and no acute distress Orientation/consciousness: patient oriented x3 Limitations: no limitations HENMT Head: Yes normal to inspection and Yes atraumatic Ears: hearing grossly normal bilaterally General nose exam: Normal external nose present Face and sinus: Yes normal facial exam Eyes General: appearance normal, both eyes and all related structures EOM: EOMs intact bilaterally Neck Neck: Yes normal visual inspection and Yes no meningeal signs Resp Effort & Inspection: normal respiratory effort and no respiratory distress Cardio Rate: regular rate Heart sounds: S1 normal heart sound present and S2 normal heart sound present GI Inspection: Yes normal to inspection Palpation (GI): Soft to palpation, nontender, no guarding and not rigid Rectal Exam - Female: External hemorrhoid(s) present ( without inflammation/active bleeding or thrombosis) General: Yes no CVA tenderness Back/Spine/Pelvis Back: no CVA tenderness Skin Rashes: no rashes Wounds: no wounds Neuro General: patient oriented x3, tone normal and no meningeal signs Gait exam (Neuro): Normal gait present Extrem General: Yes normal to inspection Course Course Course Narrative: -1052-- mild leukocytosis of 12.7, labs otherwise unremarkable. UA negative. Occult stool negative. on re-evaluation patient reports symptomatic improvement after medications given in the ED. Results discussed including worrisome signs and symptoms and strict return precautions and needed close follow-up with Gastroenterology MDM - Abdominal Pain MDM Narrative Medical decision making narrative: 36-year-old female with a past medical history of COVID-19, gastroenteritis, hemorrhoids, presenting to the ED complaining intermittent abdominal cramping times with associated diarrhea. On exam vital signs stable, NAD/nontoxic appearing, abdomen soft/nontender, no rebound or guarding, no CVA tenderness. Concern for gastroenteritis versus food poisoning versus gastritis/ GERD. Rule out occult bleeding versus hemorrhoidal bleeding. Lower concern for diverticulitis/ appendicitis, renal stone, or ovarian pathology without tenderness on exam Plan: Labs, UA, symptomatic tx, re-evaluate Differential Diagnosis Differential diagnosis: Likely abdominal pain, constipation, gastroenteritis and gastritis Medical Records Attestation: I reviewed the patient's medical records. Lab Data Attestation: I reviewed the patient's lab results. Result diagrams: 01/23/22 09:15 01/23/22 09:15 Labs: Lab Results 01/23/22 01/23/22 01/23/22 Range/Units 08:02 08:02 09:15 WBC 12.7 H (4.8-10.8) X10*3/uL RBC 4.51 (4.20-5.50) X10*6/uL Hgb 12.1 (12.0-16.0) g/dl Hct 38.5 (37.0-47.0) % MCV 85.4 (80.0-98.0) fL MCH 26.8 L (27.0-33.0) pg MCHC 31.4 (31.0-35.0) g/dl RDW 14.6 (11.0-16.0) % Plt Count 322 (160-400) X10*3/uL MPV 9.1 L (9.4-12.3) fL Immature Gran % (Auto) 0.4 (0.0-0.4) % Neut % (Auto) 66.7 (45-73) % Lymph % (Auto) 27.3 (20-40) % [place] % (Auto) 5.3 (2-11) % Eos % (Auto) 0.1 (0-4) % Baso % (Auto) 0.2 (0-2) % Lymph # (Auto) 3.5 (1.2-4.9) X10*3/uL [place] # (Auto) 0.7 (0.1-1.2) X10*3/uL Eos # (Auto) 0.0 (0.0-0.4) X10*3/uL Baso # (Auto) 0.0 (0.0-0.2) X10*3/uL Abs Immat Gran (auto) 0.05 H (0.00-0.03) X10*3/uL Absolute Neuts (auto) 8.5 H (2.0-8.3) x10*3/uL Absolute Nucleated RBC 0.000 (0.0-0.012) X10*3/uL Nucleated RBC % (auto) 0.0 (0.0-0.2) /100WBC Sodium (135-145) mmol/L Potassium (3.3-5.1) mmol/L Chloride (96-108) mmol/L Carbon Dioxide (22-29) mmol/L Anion Gap (12-20) BUN (9-16) mg/dL Creatinine (0.5-1.4) mg/dL Estim Creat Clear Calc Estimated GFR Random Glucose (60-115) mg/dL Calcium (8.4-10.2) mg/dL Magnesium (1.6-2.6) mg/dL Total Bilirubin (0.0-1.0) mg/dL Direct Bilirubin (0.0-0.5) mg/dL AST (5-31) U/L ALT (0-31) U/L Alkaline Phosphatase (39-117) U/L Total Protein (6.5-8.0) g/dL Albumin (3.5-5.0) g/dL Lipase (8-78) U/L Urine Color YELLOW Urine Appearance CLEAR Urine pH 6.0 (5.0-8.0) Ur Specific Rowe >= 1.030 H (1.005-1.025) Urine Protein NEG (NEG-TRACE) MG/DL Urine Glucose (UA) NEG (NEG) MG/DL Urine Ketones NEG (NEG) MG/DL Urine Blood NEG (NEG) Urine Nitrite NEG (NEG) Ur Leukocyte Esterase NEG (NEG) Urine Test NEGATIVE (NEGATIVE) Stool Occult Blood (NEGATIVE) 01/23/22 01/23/22 Range/Units 09:15 09:15 WBC (4.8-10.8) X10*3/uL RBC (4.20-5.50) X10*6/uL Hgb (12.0-16.0) g/dl Hct (37.0-47.0) % MCV (80.0-98.0) fL MCH (27.0-33.0) pg MCHC (31.0-35.0) g/dl RDW (11.0-16.0) % Plt Count (160-400) X10*3/uL MPV (9.4-12.3) fL Immature Gran % (Auto) (0.0-0.4) % Neut % (Auto) (45-73) % Lymph % (Auto) (20-40) % [place] % (Auto) (2-11) % Eos % (Auto) (0-4) % Baso % (Auto) (0-2) % Lymph # (Auto) (1.2-4.9) X10*3/uL [place] # (Auto) (0.1-1.2) X10*3/uL Eos # (Auto) (0.0-0.4) X10*3/uL Baso # (Auto) (0.0-0.2) X10*3/uL Abs Immat Gran (auto) (0.00-0.03) X10*3/uL Absolute Neuts (auto) (2.0-8.3) x10*3/uL Absolute Nucleated RBC (0.0-0.012) X10*3/uL Nucleated RBC % (auto) (0.0-0.2) /100WBC Sodium 137 (135-145) mmol/L Potassium 4.5 (3.3-5.1) mmol/L Chloride 108 (96-108) mmol/L Carbon Dioxide 24 (22-29) mmol/L Anion Gap 10 L (12-20) BUN 15 (9-16) mg/dL Creatinine 0.76 (0.5-1.4) mg/dL Estim Creat Clear Calc 85.4 Estimated GFR > 60 Random Glucose 84 (60-115) mg/dL Calcium 9.0 (8.4-10.2) mg/dL Magnesium 1.9 (1.6-2.6) mg/dL Total Bilirubin 0.2 (0.0-1.0) mg/dL Direct Bilirubin < 0.2 (0.0-0.5) mg/dL AST 15 (5-31) U/L ALT 13 (0-31) U/L Alkaline Phosphatase 82 (39-117) U/L Total Protein 7.4 (6.5-8.0) g/dL Albumin 4.0 (3.5-5.0) g/dL Lipase 55 (8-78) U/L Urine Color Urine Appearance Urine pH (5.0-8.0) Ur Specific Rowe (1.005-1.025) Urine Protein (NEG-TRACE) MG/DL Urine Glucose (UA) (NEG) MG/DL Urine Ketones (NEG) MG/DL Urine Blood (NEG) Urine Nitrite (NEG) Ur Leukocyte Esterase (NEG) Urine Test (NEGATIVE) Stool Occult Blood NEGATIVE (NEGATIVE) Discharge Plan Discharge Clinical Impression: Abdominal pain Patient Disposition: Home, Self-Care Instructions: Abdominal Pain (ED) Additional Instructions: Your blood work was reassuring today in the emergency department. Please follow-up with Gastroenterology and her primary care doctor. If symptoms persist or worsen please return to the emergency department. Pepcid and Maalox to help with Acid reduction. Bentyl as an anti spasmodic which will help with her pain. Take as needed. Prescriptions: New dicyclomine 20 mg tablet 20 mg PO QID PRN (Reason: abdominal discomfort) Qty: 20 0RF famotidine [Pepcid] 20 mg tablet 20 mg PO DAILY Qty: 14 0RF alum-mag hydroxide-simeth [Maalox Advanced] 200-200-20 mg/5 mL suspension 5 ml PO 5XD PRN (Reason: dyspepsia) Qty: 30 0RF Rx Instructions: administer between meals and at bedtime Referrals: Ruiz Guadarrama MD [Physician] - 1 week
== END 2022-01-23 11:04 | disposition home or self-care (01) ==
PROVIDERS: Physician Assistant; Emergency Provider Emergency Medicine Emergency Medical Services
DX: R10.9 Unspecified abdominal pain (principal); R19.7 Diarrhea, unspecified; F17.200 Nicotine dependence, unspecified, uncomplicated; Z20.822 Contact with and (suspected) exposure to COVID-19; Z79.899 Other long term (current) drug therapy; Z71.6 Tobacco abuse counseling
CPT/HCPCS: 36415; 80048; 80076; 81003; 81025; 82272; 83690; 83735; 85025; 99283

== ENCOUNTER → 2022-02-06 09:58 | Outpatient (BNVA) | payer OTHER, SELFPAY | PROVIDERS: Visit Provider Physician Assistant | DX: R10.9 Unspecified abdominal pain (principal); R19.5 Other fecal abnormalities | CPT/HCPCS: 99202 ==

== ENCOUNTER 2022-08-15 12:26 | Emergency (ER) | payer OTHER, SELFPAY ==
[2022-08-15 14:01] VITALS: BP 94/66; PULSE 85; RESP 16; TEMP 36.7; O2SAT 95; BMI 22.6
--- NOTE | 2022-08-15 14:01 | ED.URI ---
HPI - URI/Sore Throat General Chief Complaint: Upper Respiratory Symptoms Stated Complaint: hard time breathing, coughing Related Data Previous Rx's Medication Instructions Recorded aluminum-mag hydroxide-simethicone 5 ml PO 5XD PRN dyspepsia #30 mL 01/23/22 200 mg-200 mg-20 mg/5 mL oral susp (Maalox Advanced) dicyclomine 20 mg tablet 20 mg PO QID PRN abdominal 01/23/22 discomfort #20 tabs famotidine 20 mg tablet (Pepcid) 20 mg PO DAILY #14 tabs 01/23/22 bisacodyl 5 mg tablet,delayed 10 mg PO ONCE colonoscopy prep 1 02/06/22 release (Dulcolax (bisacodyl)) day #2 tabs polyethylene glycol 3350 17 238 g PO ONCE 1 day #238 grams 02/06/22 gram/dose oral powder (Miralax) levofloxacin 500 mg tablet 500 mg PO DAILY 7 days #7 tabs 08/18/22 [id number] 2.5 20 ml PO Q4H PRN cough #118 mL 08/18/22 mg-5 mg-50 mg/5 mL oral liquid (Robitussin Cough and Cold CF) Allergies Allergy/AdvReac Type Severity Reaction Status Date / Time No Known Allergies Allergy Verified 02/06/22 10:05 [No Known Allergies*] COUNTS INCLUDE 234 BEDS AT THE [facility] Past Medical History Medical History (Updated 08/25/22 @ 09:08 by Tayla Garcia NP) Abdominal pain No known health problems Surgical History (Updated 02/06/22 @ 10:13 by Fabi Lim) History of dental surgery Family History Family History Father Diabetes Hyperlipemia Mother HTN (hypertension) Maternal Aunt Colon cancer Social History Social History (Updated 02/06/22 @ 10:33 by Venecia Perez PA-C) Household Members Other:: in relationship, 14 y/o girl Alcohol intake: never Patient Tobacco Use Status: Current everyday Tobacco user Smoked in Last 30 Days: Yes Use of substances other than those prescribed or required for medical reasons: No Advance Directives: No Current occupational status: unemployed Physical Exam Vital Signs: Vital Signs: Last Vital Signs Temp 98.0 F 08/15/22 14:01 Pulse 85 08/15/22 14:01 Resp 16 08/15/22 14:01 BP 94/66 08/15/22 14:01 Pulse Ox 95 08/15/22 14:01 O2 Del Method 08/15/22 14:01 BMI result Body Mass Index 22.6 Course Course Course Narrative: This is a rapid medical exam. Deferred additional HPI, ROS, PE to primary provider. 36 yo female here with complaints of chest congestion, productive cough, diff breathing x 2 days. Will send testing for flu, covid, rsv. VSS. Discharge Plan Discharge Clinical Impression: Upper respiratory infection Patient Disposition: Elopement Prescriptions: No Action dicyclomine 20 mg tablet 20 mg PO QID PRN (Reason: abdominal discomfort) Qty: 20 0RF famotidine [Pepcid] 20 mg tablet 20 mg PO DAILY Qty: 14 0RF alum-mag hydroxide-simeth [Maalox Advanced] 200-200-20 mg/5 mL suspension 5 ml PO 5XD PRN (Reason: dyspepsia) Qty: 30 0RF Rx Instructions: administer between meals and at bedtime levofloxacin 500 mg tablet 500 mg PO DAILY 7 Days Qty: 7 0RF Robitussin Cough and Cold CF 2.5-5-50 mg/5 mL liquid 20 ml PO Q4H PRN (Reason: cough) Qty: 118 0RF bisacodyl [Dulcolax (bisacodyl)] 5 mg tablet,delayed release (DR/EC) 10 mg PO ONCE 1 Days Qty: 2 0RF Rx Instructions: Take 2 tablets by mouth at 12:00pm the day before your procedure. polyethylene glycol 3350 [Miralax] 17 gram/dose powder 238 g PO ONCE 1 Days Qty: 238 0RF Rx Instructions: Take as directed by mouth the day before your procedure. Discharge Date/Time: 08/15/22 18:04
== END 2022-08-15 18:04 | disposition left against medical advice (07) ==
PROVIDERS: Emergency Provider Emergency Medicine
DX: R06.00 Dyspnea, unspecified (principal); R05.9 Cough, unspecified
CPT/HCPCS: 99281

== ENCOUNTER 2022-08-18 06:50 | Emergency (ER) | payer OTHER, SELFPAY ==
--- NOTE | ~2022-08-18 | XR_ITS ---
EXAMINATION: XR CHEST CLINICAL INFORMATION: Diffuse crackles and cough with fever. COMPARISON: None TECHNIQUE: 2 views of the chest were obtained. FINDINGS: Diffuse, patchy bilateral airspace opacities. No pleural effusion or pneumothorax. Unremarkable cardiomediastinal silhouette. No acute osseous abnormality. XR/XR chest 2V IMPRESSION: Patchy bilateral airspace opacities which can be seen in the setting of an infectious or inflammatory process, including viral pneumonia.
[2022-08-18 07:11] VITALS: BP 114/67; PULSE 100; RESP 22; TEMP 36.7; O2SAT 95; BMI 21.1
--- NOTE | 2022-08-18 07:14 | ED.SOB ---
HPI - SOB/Dyspnea General Chief Complaint: General Medical Stated Complaint: SOB Time Seen by Provider: 08/18/22 07:12 Source: patient Mode of arrival: ambulatory Limitations: no limitations History of Present Illness HPI Narrative: Patient with fever to 102, with cough and diarrhea. No history of asthma. no one else sick at home. MD elicited complaint: shortness of breath and cough Onset (ago): day(s) Timing: constant Severity: mild Related Data Previous Rx's Medication Instructions Recorded aluminum-mag hydroxide-simethicone 5 ml PO 5XD PRN dyspepsia #30 mL 01/23/22 200 mg-200 mg-20 mg/5 mL oral susp (Maalox Advanced) dicyclomine 20 mg tablet 20 mg PO QID PRN abdominal 01/23/22 discomfort #20 tabs famotidine 20 mg tablet (Pepcid) 20 mg PO DAILY #14 tabs 01/23/22 bisacodyl 5 mg tablet,delayed 10 mg PO ONCE colonoscopy prep 1 02/06/22 release (Dulcolax (bisacodyl)) day #2 tabs polyethylene glycol 3350 17 238 g PO ONCE 1 day #238 grams 02/06/22 gram/dose oral powder (Miralax) levofloxacin 500 mg tablet 500 mg PO DAILY 7 days #7 tabs 08/18/22 [id number] 2.5 20 ml PO Q4H PRN cough #118 mL 08/18/22 mg-5 mg-50 mg/5 mL oral liquid (Robitussin Cough and Cold CF) Allergies Allergy/AdvReac Type Severity Reaction Status Date / Time No Known Allergies Allergy Verified 02/06/22 10:05 [No Known Allergies*] Review of Systems Constitutional: Constitutional: Reports no additional constitutional complaints Eyes: Eyes: Reports no additional eye complaints ENT: Denies dizziness Cardiovascular: Cardiovascular: Reports no additional cardiovascular complaints Respiratory: Respiratory: Reports as per HPI Gastrointestinal: Gastrointestinal: Reports no additional gastrointestinal complaints Genitourinary: Genitourinary: Reports no additional female genitourinary complaints Musculoskeletal: Musculoskeletal: Reports no additional musculoskeletal complaints Integumentary/Breasts: Skin/Breast: Denies rash Neurologic: Reports system reviewed and no additional complaints, except as documented, Denies dizziness and Denies Sensory deficit (Neuro) Psychiatric: Psychiatric: Denies anxiety [facility] Past Medical History Medical History (Updated 08/18/22 @ 09:19 by Kin Coelho MD) Abdominal pain No known health problems Surgical History (Updated 02/06/22 @ 10:13 by Fabi Lim) History of dental surgery Family History Family History Father Diabetes Hyperlipemia Mother HTN (hypertension) Maternal Aunt Colon cancer Social History Social History (Updated 02/06/22 @ 10:33 by Venecia Perez PA-C) Household Members Other:: in relationship, 14 y/o girl Alcohol intake: never Patient Tobacco Use Status: Current everyday Tobacco user Smoked in Last 30 Days: Yes Use of substances other than those prescribed or required for medical reasons: No Advance Directives: No Current occupational status: unemployed Physical Exam Vital Signs: Vital Signs: Last Vital Signs Temp 98.8 F 08/18/22 09:05 Pulse 104 H 08/18/22 09:05 Resp 35 H 08/18/22 09:05 BP 111/70 08/18/22 09:05 Pulse Ox 92 08/18/22 09:05 O2 Del Method 08/18/22 09:05 BMI result Body Mass Index 21.1 Const: General: healthy appearing Nutritional Appearance: average body habitus Orientation/consciousness: oriented to person and patient oriented x3 Limitations: no limitations HEENT: Head: Yes normal to inspection Ears: external ears normal General nose exam: Normal external nose present Mouth: Normal oral and palatal mucosa present and oropharynx normal Throat: Yes posterior oropharynx normal Eyes: General: appearance normal, both eyes and all related structures Neck: Other: supple Neck: Yes normal visual inspection Chest: Chest palpation & inspection: normal inspection of the chest Resp: Other: diffuse crackles bilaterally Cardio: Jugular venous distension: no JVD Rate: regular rate Rhythm: regular rhythm Heart sounds: S1 normal heart sound present and S2 normal heart sound present GI: Inspection: Yes normal to inspection Palpation (GI): Soft to palpation, nontender and No hepatosplenomegaly present Auscultation: normal bowel sounds : General: Yes no CVA tenderness Back/Spine/Pelvis: Back: no CVA tenderness Skin: General skin exam: no rashes or lesions noted Neuro: General: oriented to person and patient oriented x3 Cranial nerves: Yes CN's II-XII intact bilaterally Motor exam (neuro): 5/5 motor strength present throughout Sensory Exam: No Sensory deficit (Neuro) Extrem: General: Yes normal to inspection Psych: Appearance: grossly normal Course Reevaluation(s) Reevaluation #1: patient looking better, lungs sound bad, WBC 22k, will start levaquin, robitussin. Patient is flu A positive and hopefully will do well at home if not she will need to come back Time: 09:18 Medications Administered Generic Name Dose Route Start Last Admin Trade Name Freq PRN Reason Stop Dose Admin Azithromycin 500 mg/ Sodium 250 mls @ 125 mls/hr 08/18/22 07:49 08/18/22 08:54 Chloride IV 08/18/22 09:48 125 mls/hr ONCE ONE Administration Discontinued Medications Generic Name Dose Route Start Last Admin Trade Name Freq PRN Reason Stop Dose Admin Albuterol/Ipratropium 3 ml 08/18/22 07:19 08/18/22 07:42 Albuterol/Iprat 2.5/0.5mg 3 Ml Ampul.Neb INHALE 08/18/22 07:20 3 ml ONCE ONE Administration Ceftriaxone Sodium 1 gm/ 50 mls @ 100 mls/hr 08/18/22 07:49 08/18/22 08:53 Sodium Chloride IV 08/18/22 08:18 Infused ONCE ONE Infusion Ibuprofen 600 mg 08/18/22 07:20 08/18/22 07:38 Ibuprofen 600 Mg Tablet PO 08/18/22 07:21 600 mg ONCE ONE Administration Medical Decision Making Differential Diagnosis At this time considering bacterial pneumonia vs viral pneumonia Admission/Observation patient with patchy bilateral pneumonia, I will check labs and give IV abx, considering admission at this time Lab Data Result Diagrams: 08/18/22 08:06 08/18/22 08:06 Labs: Lab Results 08/18/22 08/18/22 08/18/22 Range/Units 07:39 08:06 08:06 WBC 22.6 H (4.8-10.8) X10*3/uL RBC 4.82 (4.20-5.50) X10*6/uL Hgb 12.9 (12.0-16.0) g/dl Hct 39.2 (37.0-47.0) % MCV 81.3 (80.0-98.0) fL MCH 26.8 L (27.0-33.0) pg MCHC 32.9 (31.0-35.0) g/dl RDW 15.0 (11.0-16.0) % Plt Count 257 (160-400) X10*3/uL MPV 9.2 L (9.4-12.3) fL Immature Gran % (Auto) 0.7 H (0.0-0.4) % Neut % (Auto) 78.8 H (45-73) % Lymph % (Auto) 15.7 L (20-40) % Hardy % (Auto) 4.7 (2-11) % Eos % (Auto) 0.0 (0-4) % Baso % (Auto) 0.1 (0-2) % Lymph # (Auto) 3.6 (1.2-4.9) X10*3/uL Hardy # (Auto) 1.1 (0.1-1.2) X10*3/uL Eos # (Auto) 0.0 (0.0-0.4) X10*3/uL Baso # (Auto) 0.0 (0.0-0.2) X10*3/uL Abs Immat Gran (auto) 0.16 H (0.00-0.03) X10*3/uL Absolute Neuts (auto) 17.8 H (2.0-8.3) x10*3/uL Absolute Nucleated RBC 0.000 (0.0-0.012) X10*3/uL Nucleated RBC % (auto) 0.0 (0.0-0.2) /100WBC Sodium 140 (135-145) mmol/L Potassium 3.9 (3.3-5.1) mmol/L Chloride 105 (96-108) mmol/L Carbon Dioxide 23 (22-29) mmol/L Anion Gap 16 (12-20) BUN 9 (9-16) mg/dL Creatinine 0.78 (0.5-1.4) mg/dL Estim Creat Clear Calc 86.9 Estimated GFR > 60 Random Glucose 127 H (60-115) mg/dL Calcium 8.6 (8.4-10.2) mg/dL Influenza Type A (PCR) POSITIVE A (Negative) Influenza Type B (PCR) NEGATIVE (Negative) RSV RNA Qual (PCR) NEGATIVE (Negative) SARS-CoV-2 RNA (RT-PCR) NEGATIVE (Negative) Independent Interpretation I performed an independent interpretation of an: Plain X-Ray Interpretation: My interpretation of the chest xray is bilateral patchy pneumonia Discharge Plan Discharge Clinical Impression: Pneumonia, Influenza A Patient Disposition: Home, Self-Care Instructions: Influenza (ED), Pneumonia (ED) Prescriptions: New levofloxacin 500 mg tablet 500 mg PO DAILY 7 Days Qty: 7 0RF Robitussin Cough and Cold CF 2.5-5-50 mg/5 mL liquid 20 ml PO Q4H PRN (Reason: cough) Qty: 118 0RF No Action dicyclomine 20 mg tablet 20 mg PO QID PRN (Reason: abdominal discomfort) Qty: 20 0RF famotidine [Pepcid] 20 mg tablet 20 mg PO DAILY Qty: 14 0RF alum-mag hydroxide-simeth [Maalox Advanced] 200-200-20 mg/5 mL suspension 5 ml PO 5XD PRN (Reason: dyspepsia) Qty: 30 0RF Rx Instructions: administer between meals and at bedtime bisacodyl [Dulcolax (bisacodyl)] 5 mg tablet,delayed release (DR/EC) 10 mg PO ONCE 1 Days Qty: 2 0RF Rx Instructions: Take 2 tablets by mouth at 12:00pm the day before your procedure. polyethylene glycol 3350 [Miralax] 17 gram/dose powder 238 g PO ONCE 1 Days Qty: 238 0RF Rx Instructions: Take as directed by mouth the day before your procedure. Referrals: Physician,None [Primary Care Provider] - 1 week Stand Alone Forms: Work/School Release
[2022-08-18] MEDS: Ibuprofen 600 MG TABLET PO (07:38)
[2022-08-18] MEDS: Albuterol/Iprat 2.5/0.5MG 3 ML AMPUL.NEB INHALE (07:42)
[2022-08-18 07:43] VITALS: BP 106/72; PULSE 89; PULSE 93; RESP 18; RESP 26; TEMP 36.8; O2SAT 95
[2022-08-18 08:09] LABS: MANUAL DIFF FLAG NO
[2022-08-18 08:13] LABS: Basophils Percent Auto 0.1 % (0-2); Hematocrit 39.2 % (37.0-47.0); Hemoglobin 12.9 g/dl (12.0-16.0); Imm Gran Abs Auto 0.16 X10*3/uL (0.00-0.03); Imm Gran Pct Auto 0.7 % (0.0-0.4); Lymphocytes Absolute Auto 3.6 X10*3/uL (1.2-4.9); Lymphocytes Percent Auto 15.7 % (20-40); Mean Corpuscular HGB Conc 32.9 g/dl (31.0-35.0); Mean Corpuscular Hemoglobin 26.8 pg (27.0-33.0); Mean Corpuscular Volume 81.3 fL (80.0-98.0); Mean Platelet Volume 9.2 fL (9.4-12.3); Monocytes Absolute Auto 1.1 X10*3/uL (0.1-1.2); Monocytes Percent Auto 4.7 % (2-11); Neutrophils Absolute Auto 17.8 x10*3/uL (2.0-8.3); Neutrophils Percent Auto 78.8 % (45-73); Platelet Count 257 X10*3/uL (160-400); Red Blood Count 4.82 X10*6/uL (4.20-5.50); White Blood Count 22.6 X10*3/uL (4.8-10.8)
[2022-08-18] MEDS: cefTRIAXone sodium 1 GM in 0.9 % Sodium Chloride 50 ML IV (08:19)
[2022-08-18 08:27] LABS: Anion Gap 16 (12-20); Blood Urea Nitrogen 9 mg/dL (9-16); Calcium 8.6 mg/dL (8.4-10.2); Carbon Dioxide 23 mmol/L (22-29); Chloride 105 mmol/L (96-108); Creatinine Clr Calc Pharmacy 86.9; Estimated Glomerular Filt Rate > 60; Glucose Random 127 mg/dL (60-115); Potassium 3.9 mmol/L (3.3-5.1); Sodium 140 mmol/L (135-145)
[2022-08-18 08:32] LABS: Influenza A PCR POSITIVE (Negative); Influenza B PCR NEGATIVE (Negative); Resp Syncy Virus RNA Qual PCR NEGATIVE (Negative); SARS COV2 PCR INHOUSE NEGATIVE (Negative)
[2022-08-18] MEDS: Azithromycin 500 MG in 0.9 % Sodium Chloride 250 ML 125 MG IV (08:54)
[2022-08-18 09:05] VITALS: BP 111/70; PULSE 104; RESP 35; TEMP 37.1; O2SAT 92
== END 2022-08-18 10:59 | disposition home or self-care (01) ==
PROVIDERS: Emergency Provider Emergency Medicine
DX: J10.08 Influenza due to other identified influenza virus with other specified pneumonia (principal); Z20.822 Contact with and (suspected) exposure to COVID-19; F17.200 Nicotine dependence, unspecified, uncomplicated
CPT/HCPCS: 0241U; 36415; 71046; 80048; 85025; 87040; 94640; 96365; 99284; J0456; J0696

== ENCOUNTER 2023-01-23 12:51 | Day surgery (SDC) | payer OTHER, SELFPAY ==
[2023-01-21 12:35] VITALS: BMI 23.0
--- NOTE | 2023-01-22 12:11 | P.CONAN_ITS ---
Documented by User: Paulina Alcantar NP 01/22/23 12:11 HPI - Anesthesia Eval Consult details Narrative: 37yo F for Upper Endoscopy and Colonoscopy [facility] Active Problems Active Problems: All Active Problems (Updated 01/21/23 @ 12:32 by Bianka Ojeda RN) COVID-19 (Acute) Change in consistency of stool (Acute) Abdominal pain (Acute) Past Medical History Medical History (Updated 01/21/23 @ 12:32 by Bianka Ojeda RN) Abdominal pain Family History Family History Father Diabetes Hyperlipemia Mother HTN (hypertension) Maternal Aunt Colon cancer Surgical History Surgical History (Updated 02/06/22 @ 10:13 by Fabi Lim) History of dental surgery Social History Social History (Updated 02/06/22 @ 10:33 by Venecia Perez PA-C) Household Members Other:: in relationship, 14 y/o girl Alcohol intake: never Patient Tobacco Use Status: Current everyday Tobacco user Current occupational status: unemployed Meds Allergies Allergy/AdvReac Type Severity Reaction Status Date / Time No Known Allergies Allergy Verified 02/06/22 10:05 [No Known Allergies*] Exam Exam Date and Time: January 22, 2023 1211 Height,Weight and Vital Signs: Height 5 ft 3 in Weight 58.967 kg Assessment and Plan Assessment Anesthesia Assessment: Chart Reviewed Documented by User: Chito Jules MD 01/23/23 12:06 [facility] Past Medical History Medical History (Updated 01/21/23 @ 12:32 by Bianka Ojeda RN) Abdominal pain Family History Family History Father Diabetes Hyperlipemia Mother HTN (hypertension) Maternal Aunt Colon cancer Family history of problems with anesthesia: No Surgical History Surgical History (Updated 06/07/22 @ 10:13 by Fabi Lim) History of dental surgery History of Problems with Anesthesia: No Social History Social History (Updated 02/06/22 @ 10:33 by Venecia Perez PA-C) Household Members Other:: in relationship, 14 y/o girl Alcohol intake: never Patient Tobacco Use Status: Current everyday Tobacco user Current occupational status: unemployed Meds Allergies Allergy/AdvReac Type Severity Reaction Status Date / Time No Known Allergies Allergy Verified 02/06/22 10:05 [No Known Allergies*] Exam Airway Mallampati Class: II TM Dist: >3cm Neck ROM: Full Heart: rrr Lungs: cta Assessment and Plan Assessment Anesthesia Assessment: Anesthesia Plan Discussed Final Anesthetic Review Family History of Problems with Anesthesia: No History of Problems with Anesthesia: No NPO: Yes ASA Class: II Final Preanesthetic Review: No Changes in Pt Med Stat, Meds/Allgs Chart Reviewed, Consent Obtained/Reviewed and Anes Risks/Benef Reviewed Patient Risk: Low Procedure Risk: Low Anesthetic Plan Anesthetic Plan: MAC: and Agree w/ Assess. and Plan Disposition: Standard PACU
[2023-01-23 13:11] LABS: UPreg QC Valid YES; Urine Pregnancy NEGATIVE (NEGATIVE)
[2023-01-23 13:21] VITALS: BP 119/58; PULSE 73; RESP 16; TEMP 36.4; O2SAT 98
[2023-01-23] MEDS: Lactated Ringers 1,000 ML 100 ML IVCONT (13:40)
--- NOTE | 2023-01-23 13:44 | MHC.SHP ---
Pre-Procedural Eval Section A Date of Service: 01/23/23 Section B Chief Complaint: Other fecal abnormalities,abdominal pain Relevant Family History (Specify if Yes): No Relevant Social History: Tobacco Use Present Medications: see Short Stay Collaborative assessment Medical History: Significant History (covid ) History of Previous Operations: Relevant previous surgery/procedure and date(s) (dental surgery, tubal ligation) Allergies: Allergies Allergy/AdvReac Type Severity Reaction Status Date / Time No Known Allergies Allergy Verified 02/06/22 10:05 [No Known Allergies*] Review of Systems Sugical H&P ROS: Negative: Constitution, Cardiovascular, Respiratory, Neurological, Psychiatric, Hem-Onc, Allergic/Immunologic, Gastrointestinal, Genitourinary, Musculoskeletal, Integumentary, Endocrine and Eyes/Ears/Nose/Throat Exam Surgical H&P Exam: Normal: HEENT, Normal: Heart, Normal: Lungs, Normal: Extremities, Normal: Abdomen, Normal: Skin and Normal: Neurological Plan Diagnosis/Plan: Unchanged I have reviewed the history and physical and performed a pertinent physical examination on my patient. No changes have occurred unless specified. Time Spent With Patient Time: Total time managing care of this patient today ____ minutes.
--- NOTE | 2023-01-23 13:47 | P.OP_ITS ---
Operative Note Operative Note Date of Service: 01/23/23 Narrative: Operative Information Procedure Description: EGD, Colonoscopy Indication: abn bowel habit Anesthesia: MAC FLEXIBLE TRANSORAL UPPER GASTROINTESTINAL ENDOSCOPY AND COLONOSCOPY PROCEDURE NOTE UPPER ENDOSCOPY Consent: Indications for the procedure and potential complications of bleeding, perforation, reaction to medications and missed diagnosis were discussed with the patient and informed consent was obtained. Instrument: Olympus GIF H 190 J mid size upper endoscope Monitoring: Vital signs and clinical assessment, continuous EKG monitoring, Pulse oximetry, Carbon Dioxide monitoring and blood pressure monitoring were done throughout the procedure. Procedure: The patient was placed in the left lateral decubitis position and pre-procedure medications were administered and a bite block was placed. The endoscope was inserted into the mouth and advanced under direct vision to the third part of duodenum. A careful inspection was made as the upper endoscope was withdrawn including a retroflexed examination of the proximal stomach; Findings and interventions are described below. Findings: Larynx:normal Esophagus: GE junction at 35 cm, diaphragm hiatus at 35 cm, friable and einflammed, boggy tissue at GEJ, bx taken from GEJ and distal,proximal esophagus. Due to persistent oozing, x 2 clips applied with hemostasis. Stomach: mild erythema. Biopsies were obtained. Grade 2 flap valve on retroflexed examination of the cardia. Duodenum: Normal bulb and descending duodenum, bx taken Intervention: Biopsies as noted above, COLONOSCOPY Instrument: Olympus variable stiffness pediatric scope 190L Colonoscopy Monitoring: Vital signs and clinical assessment, continuous EKG monitoring, Pulse oximetry, Carbon Dioxide monitoring and blood pressure monitoring were done throughout the procedure. Colon withdrawal time was 16 minutes. Procedure: The patient was placed in the left lateral decubitis position and pre-procedure medications were administered. After a digital rectal examination of the ano-rectum, the video colonoscope was inserted into the rectum and advanced through the colon to the cecum/TI. The colonoscope was slowly withdrawn in a retrograde panoramic fashion and the colon mucosa was carefully examined including a retroflexed view of the rectum. Findings and interventions are described below. Procedure Difficulty:easy Findings: Terminal Ileum- mild inflammation around the ileocecal valve and erythema in TI, bx taken Cecum:normal Ascending Colon: normal, bx taken Transverse Colon -normal, bx taken Descending Colon:normal, bx taken Sigmoid Colon: non specific erythema and granularity, bx taken Rectum: Retroflexion with small internal hemorrhoids, grade I, granular mucosa, bx taken Anorectum - normal Colon preparation: [place] Bowel Preparation Scale Right colon; 2 Transverse colon: 3 Left colon; 3 (0 = Unprepared colon segment with mucosa not seen due to solid stool that cannot be cleared. 1 = Portion of mucosa of the colon segment seen, but other areas of the colon segment not well seen due to staining, residual stool and/or opaque liquid. 2 = Minor amount of residual staining, small fragments of stool and/or opaque liquid, but mucosa of colon segment seen well. 3 = Entire mucosa of colon segment seen well with no residual staining, small fragments of stool or opaque liquid) Impression and Post Procedure Diagnosis: Endoscopy Findings: gastritis esophagitis Colonoscopy Findings: internal hemorrhoids ileitis non specific colitis Plan: Await Pathology results Repeat Colonoscopy aged 45 or earlier if clinically indicated High fiber diet leaflet avoid straining at stool, epsom salts and sitz bath, anusol supps or cream depending on results may need CTe for further eval r/o crohns smoking cessation Above findings were reviewed with the patient and relevant handouts were provided if indicated.
[2023-01-23 14:44] VITALS: BP 99/59; PULSE 80; RESP 16; TEMP 36.1; O2SAT 96
[2023-01-23 14:59] VITALS: BP 103/57; PULSE 58; RESP 16; TEMP 36.6; O2SAT 98
[2023-01-23 15:14] VITALS: BP 103/57; PULSE 56; RESP 16; O2SAT 96
== END 2023-01-23 15:50 | disposition home or self-care (01) ==
PROVIDERS: Nurse Practitioner; Visit Provider Internal Medicine Gastroenterology
PROC: (CPT 45380; principal; 2023-01-23 13:50)
DX: R19.4 Change in bowel habit (principal); R19.5 Other fecal abnormalities; K52.9 Noninfective gastroenteritis and colitis, unspecified; K64.0 First degree hemorrhoids; K56.7 Ileus, unspecified; R10.9 Unspecified abdominal pain; K29.50 Unspecified chronic gastritis without bleeding; K20.80 Other esophagitis without bleeding; K21.9 Gastro-esophageal reflux disease without esophagitis; K44.9 Diaphragmatic hernia without obstruction or gangrene; Z79.899 Other long term (current) drug therapy; F17.210 Nicotine dependence, cigarettes, uncomplicated
CPT/HCPCS: 45380; 43239; 81025; 88305; 88342

== ENCOUNTER → 2023-02-06 07:38 | Outpatient (BNVA) | payer OTHER, SELFPAY | PROVIDERS: Visit Provider Physician Assistant | DX: K29.70 Gastritis, unspecified, without bleeding (principal); K20.90 Esophagitis, unspecified without bleeding; K21.9 Gastro-esophageal reflux disease without esophagitis; K52.9 Noninfective gastroenteritis and colitis, unspecified; K64.8 Other hemorrhoids; Z98.890 Other specified postprocedural states | CPT/HCPCS: 99212 ==

== ENCOUNTER 2023-03-04 09:03 | Outpatient (REF) | payer OTHER, SELFPAY ==
--- NOTE | ~2023-03-04 | CT_ITS ---
EXAMINATION: CT ENTEROGRAPHY ABDOMEN AND PELVIS WITH CONTRAST CLINICAL INFORMATION: Noninfective gastroenteritis and colitis COMPARISON: Previous CT October 2021 TECHNIQUE: Study performed with oral VoLumen (1350 mL) and 480 mL of water to distend the abdomen. The patient was injected with 85 mL Omnipaque 350 intravenous contrast which was administered without adverse effect. Coronal and sagittal reformatted images were obtained at the technologist's workstation. This CT examination was performed using dose optimization techniques as appropriate, variously including the following: *Automated exposure control *Adjustment of mA and/or kV according to patient size (this includes techniques or standardized protocols for targeted exams where dose is matched to indication/reason for exam; i.e. extremities or head) *Use of iterative reconstruction technique DLP: 314 mGy-cm FINDINGS: GASTROINTESTINAL FINDINGS: Stomach: The linear radiopaque density in the proximal stomach/GE junction region. This measures 0.4 x 1.7 cm axial image 30 series 3. Differential would include postsurgical change/biopsy clip and foreign body. Correlation with surgical history recommended. The stomach is otherwise normal. Small intestine: Abnormal wall thickening and edema and mucosal enhancement of the terminal ileum. This involves the distal approximately 10 cm. There is a caliber change seen in this region suggestive of a mild stricture. These findings appear increased from October 2021 exam. Large intestine: Question mild wall thickening, increased mucosal enhancement and increased vascularity of the distal left or proximal sigmoid colon/mild colitis. Small right perianal abscess measuring 1.5 x 2 cm axial image 92 series 4. This is increased from prior exam. The appendix is not seen. Additional findings: There are enlarged prominent small bowel mesentery lymph nodes. No ascites. No abdominal abscess or fistulous tract demonstrated. ABDOMINAL AND PELVIC CT FINDINGS: Liver, gallbladder, biliary tract: Normal Pancreas: Normal Spleen: Normal Adrenal glands and kidneys: Normal Ureters and bladder: Normal areas IUD in the uterus in satisfactory position. Lymphovascular structures: Prominent small bowel mesentery lymph nodes. Small retroperitoneal lymph nodes in the lower abdomen. No ascites. 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 Question mild colitis of the distal left and proximal sigmoid colon. 1.8 x 2 cm right perianal abscess. Prominent small bowel mesentery lymph nodes. Question new surgical clip GE junction/proximal stomach. Correlation with surgical history recommended.
== END 2023-03-04 09:04 | disposition home or self-care (01) ==
LOC: HO.CT 09:03
PROVIDERS: Visit Provider Physician Assistant
DX: K52.9 Noninfective gastroenteritis and colitis, unspecified (principal)
CPT/HCPCS: 74177; Q9967

== ENCOUNTER 2023-03-18 09:59 | Outpatient (AMB) | payer OTHER, SELFPAY ==
--- NOTE | 2023-03-18 10:04 | MHC.OFFVIS ---
Intake Vital Signs 03/18/23 10:09 Height 5 ft 3 in Weight 129 lb BMI 22.8 BP 98/54 L Blood Pressure Location Lt brachial Position Sitting Pulse 68 Intake Visit Reasons: 6 week fu Intake Note: Patient follow up for abdominal pain and CT scan results. Patient denies any GI issues. Wildlife Removal Specialist Required: No Accompanied by: Self / Same As Patient Allergies No Known Allergies [No Known Allergies*] Allergy (Verified 03/18/23 10:04) HPI HPI Comments History of Present Illness Details A 37-year-old female follows up for progress - acid reflux abdominal pain Abdominal pain is much improved she mesalamine about 1 month ago with very good response-abdominal pain has resolved her bowels and much improved For stool, no abdominal pain no rectal bleeding Omeprazole with very good response for acid reflux CTe-results pending She has no nausea, vomiting, hematemesis, hematochezia fever chills PFSH Medical History Abdominal pain IUD contraception Surgical History History of dental surgery History of dental surgery History of esophagogastroduodenoscopy (EGD) Hx of colonoscopy Family History Father Diabetes Hyperlipemia Mother HTN (hypertension) Maternal Aunt Colon cancer Social History Household Members Other:: in relationship, 14 y/o girl Alcohol intake: never Patient Tobacco Use Status: Current everyday Tobacco user Tobacco use type: Cigarette Cigarettes Per Day: 6 Current occupational status: unemployed Review of Systems Const All systems reviewed & are unremarkable except as noted in HPI and below Card Denies chest pain and Denies dyspnea Resp Denies dyspnea GI Denies heartburn, Denies nausea and Denies vomiting Physical Exam Vital Signs: Last Vital Signs Pulse 68 03/18/23 10:09 BP 98/54 L 03/18/23 10:09 BMI result Body Mass Index 22.8 Const General: cooperative, healthy appearing, comfortable, no acute distress and well developed Resp Effort & Inspection: normal respiratory effort and able to speak in complete sentences Auscultation: clear to auscultation bilaterally Cardio Rate: regular rate Rhythm: regular rhythm Heart sounds: S1 normal heart sound present and S2 normal heart sound present GI Palpation (GI): Soft to palpation and nontender Auscultation: normal bowel sounds Extrem General: Yes full ROM Psych Appearance: grossly normal and well kempt Mental Status: mental status grossly normal Speech and movement: Normal speech and movement present and Clear speech present Affect: normal affect Attitude: cooperative Thought process: Normal thought process present Thought content: Normal thought content present Insight: Good insight present (Psych) Judgement: Good judgement present (Psych) Results Reviewed Results Reviewed: and Post Procedure Diagnosis: Endoscopy Findings: gastritis esophagitis Colonoscopy Findings: internal hemorrhoids ileitis non specific colitis Plan: Await Pathology results Repeat Colonoscopy aged 45 or earlier if clinically indicated High fiber diet leaflet avoid straining at stool, epsom salts and sitz bath, anusol supps or cream depending on results may need CTe for further eval r/o crohns smoking cessation Name:Renetta Jacobs Age/Sex: 37/F Attending: Ruiz Guadarrama MD : 1985 Submitted by: Ruiz Guadarrama MD Copies to: MR #: [id number] ? Status: [facility] Collected: 01/23/23 Location: [facility] Received: 01/24/23 Diagnosis A.? Duodenum, biopsy:? Duodenal mucosa with preserved villi and no specific change.? B.? Stomach, biopsy:? Gastric antral and body mucosa with focal lamina propria hemorrhage and focal minimal chronic inactive inflammation; negative for H pylori, intestinal metaplasia and dysplasia.? C.? Gastroesophageal junction, biopsy:? Squamocolumnar mucosa and cardia- fundic mucosa with minimal chronic inflammation; negative for intestinal metaplasia and dysplasia.? D.? Esophagus, distal, biopsy:? Squamous mucosa with no specific change; no columnar mucosa present.? E.? Esophagus, proximal, biopsy:? Squamous mucosa with no specific change; no columnar mucosa present.? F.? Terminal ileum, biopsy:? Mild active ileitis; no granulomas or dysplasia (see comment). G.? Colon, right, biopsy:? Colonic mucosa with no specific change; no colitis, granulomas or dysplasia.? H.? Colon, transverse, biopsy:? Colonic mucosa with lamina propria hemorrhage and no specific change; no colitis, granulomas or dysplasia.? I.? Colon, left, biopsy:? Colonic mucosa with lamina propria hemorrhage and no specific change; no colitis, granulomas or dysplasia.? J.? Colon, rectum, biopsy:? Colonic mucosa with focal lamina propria hemorrhage and no specific change; no colitis/proctitis, granulomas or dysplasia.? Comment: (F):? The differential includes NSAIDs/drugs, infection, and chronic inflammatory bowel disease, and clinical correlation is necessary. Clinical History Pre-Op Dx:? Abnormal bowel habits, abdominal pain Post-Op Dx: Possible Ypi's esophagus, esophagitis, ileitis, non-specific colitis, internal hemorrhoids, r/o Yip's esophagus Microscopic Description Microscopic sections reviewed.? Immunohistochemical stain for H. pylori on B is negative with appropriate control. Assessment & Plan Assessment & Plan (1) Ileitis: ?Comment: CTe-further eval Mesalamine Assessment & Plan Assessment & Plan (1) Acid reflux: Code(s): K21.9 - Gastro-esophageal reflux disease without esophagitis Plan: Continue PPI avoid culprits (2) Ileitis: Comment: CTe-results pending further eval-when available for review, However if small bowel involved will need to reassess medication Meanwhile she will Continue Mesalamine Code(s): K52.9 - Noninfective gastroenteritis and colitis, unspecified (3) Abdominal pain: Comment: Resolved-no cramping Code(s): R10.9 - Unspecified abdominal pain Medications: Refilled mesalamine ER (Apriso) 1.5 grams (4 x 0.375 gram) PO DAILY 30 days 120 caps 3RF Patient Instructions: A very pleasant 37-year-old female follows up for progress-ileitis, acid reflux-symptoms much improved CTe-results pending further eval-when available for review, Discussed plan, if small bowel involved will need to reassess medication Meanwhile she will Continue Mesalamine Continue PPI avoid culprits reflux precautions Encouraged to call questions or concerns Appreciate the opportunity assist in care this pleasant patient Coding Level of Care Code Est Pt Level 3 (21655) Diagnoses Acid reflux K21.9 Ileitis K52.9 Abdominal pain R10.9 Time Spent (min) 30
[2023-03-18 10:09] VITALS: BP 98/54; PULSE 68; BMI 22.8
== END 2023-03-18 11:10 | disposition home or self-care (01) ==
PROVIDERS: Visit Provider Physician Assistant
DX: K21.9 Gastro-esophageal reflux disease without esophagitis (principal); K52.9 Noninfective gastroenteritis and colitis, unspecified; R10.9 Unspecified abdominal pain
CPT/HCPCS: 99213

== ENCOUNTER → 2023-03-18 09:59 | Outpatient (BNVA) | payer OTHER, SELFPAY | PROVIDERS: Visit Provider Physician Assistant | DX: K21.9 Gastro-esophageal reflux disease without esophagitis (principal); K52.9 Noninfective gastroenteritis and colitis, unspecified; Z79.899 Other long term (current) drug therapy | CPT/HCPCS: 99212 ==

== ENCOUNTER 2024-05-18 08:43 | Emergency (ER) | payer OTHER, SELFPAY ==
--- NOTE | 2024-05-18 08:52 | ED_ITS ---
HPI - General Adult General Chief complaint: Abdominal Pain Stated complaint: Abdominal & Rectal Pain Time Seen by Provider: 05/18/24 08:52 Source: patient Mode of arrival: ambulatory Limitations: no limitations History of Present Illness ED Provider: Luisana Niño PA-C HPI narrative: Patient is a 38 year old assigned female at with a history of ileitis and internal hemorrhoids presenting to the emergency department today with abdominal and rectal pain. Patient states that over the last 3 weeks she has had worsening abdominal pain and bleeding when she wipes. Patient denies any dizziness, lightheadedness, nausea, vomiting, fever, chills, blurry vision, double vision, loss of vision, chest pain, difficulty breathing, shortness of breath, back pain, night sweats, pain with urination, increased urinary frequency, increased urinary urgency, blood in her urine, syncope or a near syncopal episode, recent trauma or falls, bowel incontinence, bladder incontinence, or any other complaints at this time. Patient states that she saw our GI team and the medication they gave her helped but she has not been taking it. Onset (ago): week(s) (3) Location: abdomen Radiation: non-radiation Relieving factors: none Exacerbating factors: none Associated symptoms: denies other symptoms Related Data Previous Rx's ?Medication ?Instructions ?Recorded omeprazole 20 mg capsule,delayed 20 mg PO DAILY #30 caps 02/06/23 release mesalamine 0.375 gram 1.5 g (4 x 0.375 gram) PO DAILY 30 03/18/23 capsule,extended release 24 hr days #120 caps (Apriso) doxycycline hyclate 100 mg tablet 100 mg PO BID 7 days #14 tabs 05/18/24 mesalamine 0.375 gram 1.5 g (4 x 0.375 gram) PO DAILY 05/18/24 capsule,extended release 24 hr #14 caps Allergies Allergy/AdvReac Type Severity Reaction Status Date / Time No Known Allergies Allergy Verified 05/18/24 09:00 [No Known Allergies*] Review of Systems 2 Constitutional: Constitutional: Reports no additional constitutional complaints, Denies chills, Denies fever(s) and Denies night sweats Eyes: Eyes: Reports no additional eye complaints, Denies blurry vision, Denies change in vision, Denies diplopia, Denies eye discharge, Denies loss of vision and Denies eye pain ENT: Denies dizziness Cardiovascular: Cardiovascular: Reports no additional cardiovascular complaints, Denies chest pain, Denies lightheadedness, Denies Loss of Consciousness and Denies dyspnea Respiratory: Respiratory: Reports no additional respiratory complaints and Denies dyspnea Gastrointestinal: Gastrointestinal: Reports no additional gastrointestinal complaints, Reports abdominal pain, Denies melena, Reports hematochezia, Denies change in bowel habits and Denies change in stool character Genitourinary: Genitourinary: Denies hematuria, Denies urinary frequency, Denies dysuria, Denies urinary incontinence, Denies urinary hesitancy and Denies urinary urgency Musculoskeletal: Musculoskeletal: Reports no additional musculoskeletal complaints, Denies numbness and Denies tingling Neurologic: Denies dizziness, Denies loss of vision, Denies numbness and Denies tingling Psychiatric: Psychiatric: Reports no additional psychiatric complaints Endocrine: Endocrine: Reports no additional endocrine complaints Hematologic/Lymphatic: Hematologic/Lymphatic: Reports no additional hematologic/lymphatic complaints Allergic/Immunologic: Allergic/Immunologic: Reports no additional allergic/immunologic complaints PMFSH Past Medical History Attestation statement: The following information was validated with the patient. Source: old records reviewed and nursing notes reviewed Medical History IUD contraception Abdominal pain Surgical History History of esophagogastroduodenoscopy (EGD) Hx of colonoscopy History of dental surgery History of dental surgery Family History Family History Father Diabetes Hyperlipemia Mother HTN (hypertension) Maternal Aunt Colon cancer Social History Social History Household Members Other:: in relationship, 14 y/o girl Alcohol intake: never Patient Tobacco Use Status: Current everyday Tobacco user Tobacco use type: Cigarette Cigarettes Per Day: 6 Smoked in Last 30 Days: Yes Use of substances other than those prescribed or required for medical reasons: Yes Substance Use Type: Marijuana Substance Use Frequency: Daily Advance Directives: No Advance Directives Information Provided: No Current occupational status: unemployed Physical Exam ED Vital Signs: Vital Signs - 24 hr 05/18/24 08:59 05/18/24 11:41 05/18/24 12:06 Temperature 98.0 F 97.9 F 97.9 F Pulse Rate 83 53 53 Respiratory Rate 18 18 18 Blood Pressure 130/82 118/76 118/76 Pulse Oximetry 100 98 98 Oxygen Delivery Method Room Air Room Air Room Air BMI result Body Mass Index 24.0 Const General: cooperative, no acute distress, alert and awake Nutritional Appearance: well nourished Orientation/consciousness: patient oriented x3 Limitations: no limitations HENMT Head: Yes normal to inspection and Yes atraumatic Ears: hearing grossly normal bilaterally and external ears normal General nose exam: Normal external nose present, no nasal discharge noted and no epistaxis Face and sinus: Yes normal facial exam, No abrasion and No laceration Mouth: Normal oral and palatal mucosa present, no drooling and no muffled voice Eyes General: appearance normal, both eyes and all related structures Periorbital: periorbital findings normal Eyelids: Yes eyelids normal Conjunctivae: conjunctivae normal Pupils: Equal, round and reactive pupils present EOM: EOMs intact bilaterally Neck Neck: Yes normal visual inspection, Yes full ROM and Yes no lymphadenopathy Chest Chest palpation & inspection: normal inspection of the chest Resp Effort & Inspection: normal respiratory effort and able to speak in complete sentences GI Inspection: Yes normal to inspection Palpation (GI): Soft to palpation, not firm, nontender, no guarding and not rigid Neuro General: patient oriented x3 and moves all extremities Cranial nerves: Yes Equal, round and reactive pupils present Cognition (Neuro): normal cognition Extrem General: Yes normal to inspection, Yes full ROM and Yes capillary refill normal Psych Appearance: grossly normal Mental Status: mental status grossly normal Affect: normal affect Attitude: cooperative Thought process: Normal thought process present Thought content: Normal thought content present Insight: Good insight present (Psych) Medical Decision Making Medical Decision Making MDM Narrative: Patient is a 38 year old assigned female at with a history of ileitis and hemorrhoids presenting to the emergency department today with abdominal and rectal pain. Patient's physical exam was unremarkable. Patient's blood work was unremarkable. Patient's urine showed a possible UTI. Given patient's symptoms, will treat. Patient's enterography CT from 03/04/2023 showed active inflammatory bowel disease of the terminal ileum and probable mild stricture, mild colitis of the distal left and proximal sigmoid colon, and 1.8 x 2 cm right perianal abscess. Patient states that she did not review these results with her GI specialist last year. Patient does not have any evidence of abscess on exam today. I explained my physical exam findings as well as all test results to the patient. I answered all questions asked by the patient. Given patient has not followed up on these results, I recommended she follow up with a general surgeon and for her persistent abdominal pain, she needs to follow back up with her GI specialist. I stressed the importance of the patient taking her medication as directed (either prescribed or as the over the counter packaging recommends). I stressed the importance of the patient following up with her primary care provider, GI specialist, and general surgeon. I stressed the importance of the patient returning to the emergency department immediately if her symptoms were to worsen or if she were to develop any dizziness, shortness of breath, difficulty breathing, chest pain, blurry vision, loss of vision, nausea, vomiting, abdominal pain, fever, chills, back pain, or any other complaints. Patient verbalized agreement and understanding with this treatment plan and discharge. Differential Diagnosis Differential Diagnoses: The differential diagnosis associated with the presentation includes Abdominal pain Ileitis UTI Admission/Observation Consideration of admission/observation: Escalation of care including admission/observation considered Patient would have been admitted to the hospital had her work up had any findings where hospital admission was appropriate and her clinical presentation warranted hospital admission. Lab Data [facility] Lab Attestation statement: I reviewed the patient's lab results. My interpretation of these results are in the [facility] Rationale portion of this note. 05/18/24 09:15 05/18/24 09:15 Labs: Lab Results 05/18/24 05/18/24 Range/Units 09:15 11:24 WBC 11.1 H (4.8-10.8) X10*3/uL RBC 4.72 (4.20-5.50) X10*6/uL Hgb 12.9 (12.0-16.0) g/dl Hct 39.7 (37.0-47.0) % MCV 84.1 (80.0-98.0) fL MCH 27.3 (27.0-33.0) pg MCHC 32.5 (31.0-35.0) g/dl RDW 15.2 (11.0-16.0) % Plt Count 292 (160-400) X10*3/uL MPV 9.2 L (9.4-12.3) fL Immature Gran % (Auto) 0.5 H (0.0-0.4) % Neut % (Auto) 67.0 (45-73) % Lymph % (Auto) 25.9 (20-40) % [place] % (Auto) 6.2 (2-11) % Eos % (Auto) 0.1 (0-4) % Baso % (Auto) 0.3 (0-2) % Lymph # (Auto) 2.9 (1.2-4.9) X10*3/uL [place] # (Auto) 0.7 (0.1-1.2) X10*3/uL Eos # (Auto) 0.0 (0.0-0.4) X10*3/uL Baso # (Auto) 0.0 (0.0-0.2) X10*3/uL Abs Immat Gran (auto) 0.06 H (0.00-0.03) X10*3/uL Absolute Neuts (auto) 7.4 (2.0-8.3) x10*3/uL Absolute Nucleated RBC 0.000 (0.0-0.012) X10*3/uL Nucleated RBC % (auto) 0.0 (0.0-0.2) /100WBC Sodium 139 (135-145) mmol/L Potassium 4.3 (3.3-5.1) mmol/L Chloride 107 (96-108) mmol/L Carbon Dioxide 24 (22-29) mmol/L Anion Gap 12 (12-20) BUN 9 (9-16) mg/dL Creatinine 0.77 (0.5-1.4) mg/dL Estim Creat Clear Calc 86.4 Estimated GFR > 60 Random Glucose 93 (60-115) mg/dL Calcium 9.5 D (8.4-10.2) mg/dL Magnesium 1.8 (1.6-2.6) mg/dL Total Bilirubin 0.2 (0.0-1.0) mg/dL AST 18 (5-31) U/L ALT 14 (0-31) U/L Alkaline Phosphatase 86 (39-117) U/L Total Protein 7.8 (6.5-8.0) g/dL Albumin 4.0 (3.5-5.0) g/dL Beta HCG, Quant < 2 mIU/mL Urine Color Yellow Urine Appearance Cloudy Urine pH 5.5 (5.0-9.0) Ur Specific [place] 1.015 (1.005-1.025) Urine Protein Negative (Neg-Trace) mg/dL Urine Glucose (UA) Negative (Negative) mg/dL Urine Ketones Negative (Negative) mg/dL Urine Blood Negative (Negative) Urine Nitrite Negative (Negative) Ur Leukocyte Esterase Small (1+) H (Negative) Urine RBC 0-2 (0-2) /HPF Urine WBC 11-20 H (0-5) /HPF Ur Squamous Epith Cells >20 (0-2) /HPF Urine Bacteria 1+ (None Seen) Hyaline Casts 0-2 (0-2) /LPF Influenza Type A (PCR) NEGATIVE (Negative) Influenza Type B (PCR) NEGATIVE (Negative) RSV RNA Qual (PCR) NEGATIVE (Negative) SARS-CoV-2 RNA (RT-PCR) NEGATIVE (Negative) Prescription Management I considered prescription management with: Antibiotic (patient prescribed an antibiotic for possible UTI) Discharge Plan Discharge Clinical Impression: Ileitis, Urinary tract infection Patient Disposition: Home, Self-Care Instructions: Urinary Tract Infection in Women (DC), Colitis (ED) Additional Instructions: Follow up with your primary care provider, a general surgeon (to discuss the previous finding of an abscess), and your GI specialist. Return to the emergency department immediately if your symptoms worsen or if you develop any dizziness, shortness of breath, difficulty breathing, chest pain, blurry vision, loss of vision, nausea, vomiting, abdominal pain, fever, chills, back pain, or any other complaints. Prescriptions: New doxycycline hyclate 100 mg tablet 100 mg PO BID 7 Days Qty: 14 0RF mesalamine 0.375 gram capsule,extended release 24hr 1.5 g PO DAILY Qty: 14 0RF No Action omeprazole 20 mg capsule,delayed release(DR/EC) 20 mg PO DAILY Qty: 30 5RF mesalamine [Apriso] 0.375 gram capsule,extended release 24hr 1.5 g PO DAILY 30 Days Qty: 120 3RF Referrals: [facility] G[facility]ology Services [Provider Group] (Call to follow up with your GI specialist. ) [facility] General Surgeons [Provider Group] (Call to establish and follow up with a general surgeon to discuss your previous CT scan findings of an abscess.) [facility] Family Medicine [Provider Group] (Call to establish and follow up with a primary care provider. If you already have a primary care provider, please follow up with them.) [facility] [Provider Group] (Call to establish and follow up with a primary care provider. If you already have a primary care provider, please follow up with them.) [facility] [Provider Group] (Call to establish and follow up with a primary care provider. If you already have a primary care provider, please follow up with them.) Stand Alone Forms: Work/School Release Interventions: ED Discharge Assessment Last Done: 05/18/24 12:06 Discharge Date/Time: 05/18/24 12:09 Print Language: [place]ar[place]
[2024-05-18 08:59] VITALS: BP 130/82; PULSE 83; RESP 18; TEMP 36.7; O2SAT 100; BMI 24.0
[2024-05-18 09:18] LABS: MANUAL DIFF FLAG NO
[2024-05-18 09:23] LABS: Basophils Percent Auto 0.3 % (0-2); Eosinophils Percent Auto 0.1 % (0-4); Hematocrit 39.7 % (37.0-47.0); Hemoglobin 12.9 g/dl (12.0-16.0); Imm Gran Abs Auto 0.06 X10*3/uL (0.00-0.03); Imm Gran Pct Auto 0.5 % (0.0-0.4); Lymphocytes Absolute Auto 2.9 X10*3/uL (1.2-4.9); Lymphocytes Percent Auto 25.9 % (20-40); Mean Corpuscular HGB Conc 32.5 g/dl (31.0-35.0); Mean Corpuscular Hemoglobin 27.3 pg (27.0-33.0); Mean Corpuscular Volume 84.1 fL (80.0-98.0); Mean Platelet Volume 9.2 fL (9.4-12.3); Monocytes Absolute Auto 0.7 X10*3/uL (0.1-1.2); Monocytes Percent Auto 6.2 % (2-11); Neutrophils Absolute Auto 7.4 x10*3/uL (2.0-8.3); Platelet Count 292 X10*3/uL (160-400); Red Blood Count 4.72 X10*6/uL (4.20-5.50); Red Cell Distribution Width 15.2 % (11.0-16.0); White Blood Count 11.1 X10*3/uL (4.8-10.8)
[2024-05-18 09:41] LABS: Alanine Aminotransferase 14 U/L (0-31); Alkaline Phosphatase 86 U/L (39-117); Anion Gap 12 (12-20); Aspartate Amino Transferase 18 U/L (5-31); Bilirubin Total 0.2 mg/dL (0.0-1.0); Blood Urea Nitrogen 9 mg/dL (9-16); Calcium 9.5 mg/dL (8.4-10.2); Carbon Dioxide 24 mmol/L (22-29); Chloride 107 mmol/L (96-108); Creatinine Clr Calc Pharmacy 86.4; Estimated Glomerular Filt Rate > 60; Glucose Random 93 mg/dL (60-115); Magnesium 1.8 mg/dL (1.6-2.6); Potassium 4.3 mmol/L (3.3-5.1); Sodium 139 mmol/L (135-145); Total Protein 7.8 g/dL (6.5-8.0)
[2024-05-18 09:59] LABS: Influenza A PCR NEGATIVE (Negative); Influenza B PCR NEGATIVE (Negative); Resp Syncy Virus RNA Qual PCR NEGATIVE (Negative); SARS COV2 PCR INHOUSE NEGATIVE (Negative)
[2024-05-18 10:07] LABS: HCG Quantitative < 2 mIU/mL
[2024-05-18 11:32] LABS: Appearance Urine Cloudy; Color Urine Yellow; Glucose Urine UA Negative (Negative); Leukocyte Esterase Urine Small (1+) (Negative); Nitrite Urine Negative (Negative); PH 5.5 (5.0-9.0); Specific Gravity - Urine 1.015 (1.005-1.025); UMIC TRIGGER UACC YES; Urine Blood Negative (Negative); Urine Ketones Negative (Negative); Urine Protein Negative (Neg-Trace)
[2024-05-18 11:34] LABS: Bacteria Urine 1+ (None Seen); Hyaline Casts Urine 0-2 /LPF (0-2); RBC Urine 0-2 /HPF (0-2); Squamous Epithelial Cell Urine >20 /HPF (0-2); UACC Culture Trigger YES
[2024-05-18 11:41] VITALS: BP 118/76; PULSE 53; RESP 18; TEMP 36.6; O2SAT 98
[2024-05-18 12:06] VITALS: BP 118/76; PULSE 53; RESP 18; TEMP 36.6; O2SAT 98
== END 2024-05-18 12:09 | disposition home or self-care (01) ==
PROVIDERS: Physician Assistant Medical; Emergency Provider Emergency Medicine
DX: K52.9 Noninfective gastroenteritis and colitis, unspecified (principal); N39.0 Urinary tract infection, site not specified; Z79.899 Other long term (current) drug therapy; Z03.818 Encounter for observation for suspected exposure to other biological agents ruled out
CPT/HCPCS: 0241U; 80053; 81001; 83735; 84702; 85025; 87086; 99283; 99284

== ENCOUNTER 2024-05-21 12:30 | Emergency (ER) | payer OTHER, SELFPAY ==
[2024-05-21 12:47] VITALS: BP 117/60; PULSE 62; RESP 16; TEMP 36.7; O2SAT 97; BMI 24.0
--- NOTE | 2024-05-21 12:48 | ED.DIZZY ---
HPI - Dizziness General Chief Complaint: Nausea/Vomiting/Diarrhea Stated Complaint: Dizziness, nausea Related Data Previous Rx's ?Medication ?Instructions ?Recorded omeprazole 20 mg capsule,delayed 20 mg PO DAILY #30 caps 02/06/23 release mesalamine 0.375 gram 1.5 g (4 x 0.375 gram) PO DAILY 30 03/18/23 capsule,extended release 24 hr days #120 caps (Apriso) doxycycline hyclate 100 mg tablet 100 mg PO BID 7 days #14 tabs 05/18/24 mesalamine 0.375 gram 1.5 g (4 x 0.375 gram) PO DAILY 05/18/24 capsule,extended release 24 hr #14 caps Allergies Allergy/AdvReac Type Severity Reaction Status Date / Time No Known Allergies Allergy Verified 05/21/24 12:48 [No Known Allergies*] [facility] Past Medical History Medical History IUD contraception Abdominal pain Surgical History History of esophagogastroduodenoscopy (EGD) Hx of colonoscopy History of dental surgery History of dental surgery Family History Family History Father Diabetes Hyperlipemia Mother HTN (hypertension) Maternal Aunt Colon cancer Social History Social History Household Members Other:: in relationship, 14 y/o girl Alcohol intake: never Patient Tobacco Use Status: Current everyday Tobacco user Tobacco use type: Cigarette Cigarettes Per Day: 6 Substance Use Type: Marijuana Advance Directives: No Advance Directives Information Provided: No Do you have a plan to hurt others: No Plan Current occupational status: unemployed Physical Exam Vital Signs: Vital Signs: Last Vital Signs Temp 98.1 F 05/21/24 12:47 Pulse 62 05/21/24 12:47 Resp 16 05/21/24 12:47 BP 117/60 05/21/24 12:47 Pulse Ox 97 05/21/24 12:47 O2 Del Method Room Air 05/21/24 12:47 BMI result Body Mass Index 24.0 Course Course Course Narrative: This is a Rapid Medical Examination (RME) performed by Izabel Lubin PA-C in triage. Full HPI, ROS, assessment and treatment plan per primary provider in the Main ED. 38 yo female with hx ileitis, recently diagnosed UTI presenting for evaluation of dizziness and nausea that started today when she returned to work. ongoing diarrhea which is unchanged from her baseline. no vomiting. soreness in the right side of her abdomen which is unchanges as well. seen here on 05/18 for abdominal pain and rectal pain and was discharged with doxycyline for UTI and her mesalamine was restarted after being off of it for 2 months. on exam patient appears well, awake, alert, no distress. normal inspection of her head/face/eyes. her lungs are clear throughout and heart sounds are normal. no peripheral edema. steady gait into triage. Plan: lab workup, orthostatic VS, imaging per primary provider Reevaluation(s) Reevaluation #1: patient left the ER without completing treatment. Medical Decision Making Lab Data 05/21/24 13:10 05/21/24 13:10 Labs: Lab Results 05/21/24 Range/Units 13:10 WBC 14.7 H (4.8-10.8) X10*3/uL RBC 4.56 (4.20-5.50) X10*6/uL Hgb 12.6 (12.0-16.0) g/dl Hct 38.1 (37.0-47.0) % MCV 83.6 (80.0-98.0) fL MCH 27.6 (27.0-33.0) pg MCHC 33.1 (31.0-35.0) g/dl RDW 15.1 (11.0-16.0) % Plt Count 280 (160-400) X10*3/uL MPV 8.9 L (9.4-12.3) fL Immature Gran % (Auto) 0.5 H (0.0-0.4) % Neut % (Auto) 72.8 (45-73) % Lymph % (Auto) 20.1 (20-40) % [place] % (Auto) 6.3 (2-11) % Eos % (Auto) 0.1 (0-4) % Baso % (Auto) 0.2 (0-2) % Lymph # (Auto) 3.0 (1.2-4.9) X10*3/uL [place] # (Auto) 0.9 (0.1-1.2) X10*3/uL Eos # (Auto) 0.0 (0.0-0.4) X10*3/uL Baso # (Auto) 0.0 (0.0-0.2) X10*3/uL Abs Immat Gran (auto) 0.08 H (0.00-0.03) X10*3/uL Absolute Neuts (auto) 10.7 H (2.0-8.3) x10*3/uL Absolute Nucleated RBC 0.000 (0.0-0.012) X10*3/uL Nucleated RBC % (auto) 0.0 (0.0-0.2) /100WBC Sodium 138 (135-145) mmol/L Potassium 3.9 (3.3-5.1) mmol/L Chloride 109 H (96-108) mmol/L Carbon Dioxide 25 (22-29) mmol/L Anion Gap 8 L (12-20) BUN 10 (9-16) mg/dL Creatinine 0.72 (0.5-1.4) mg/dL Estim Creat Clear Calc 92.3 Estimated GFR > 60 Random Glucose 86 (60-115) mg/dL Calcium 8.6 D (8.4-10.2) mg/dL Magnesium 1.6 (1.6-2.6) mg/dL Total Bilirubin 0.4 (0.0-1.0) mg/dL Direct Bilirubin 0.1 (0.0-0.5) mg/dL AST 16 (5-31) U/L ALT 16 (0-31) U/L Alkaline Phosphatase 84 (39-117) U/L Total Protein 7.5 (6.5-8.0) g/dL Albumin 3.9 (3.5-5.0) g/dL Discharge Plan Discharge Clinical Impression: Dizziness Patient Disposition: Left W/O Completing Treatment Prescriptions: No Action doxycycline hyclate 100 mg tablet 100 mg PO BID 7 Days Qty: 14 0RF mesalamine 0.375 gram capsule,extended release 24hr 1.5 g PO DAILY Qty: 14 0RF omeprazole 20 mg capsule,delayed release(DR/EC) 20 mg PO DAILY Qty: 30 5RF mesalamine [Apriso] 0.375 gram capsule,extended release 24hr 1.5 g PO DAILY 30 Days Qty: 120 3RF Discharge Date/Time: 05/21/24 20:28
[2024-05-21 13:13] LABS: MANUAL DIFF FLAG NO
[2024-05-21 13:16] LABS: Basophils Percent Auto 0.2 % (0-2); Eosinophils Percent Auto 0.1 % (0-4); Hematocrit 38.1 % (37.0-47.0); Hemoglobin 12.6 g/dl (12.0-16.0); Imm Gran Abs Auto 0.08 X10*3/uL (0.00-0.03); Imm Gran Pct Auto 0.5 % (0.0-0.4); Lymphocytes Percent Auto 20.1 % (20-40); Mean Corpuscular HGB Conc 33.1 g/dl (31.0-35.0); Mean Corpuscular Hemoglobin 27.6 pg (27.0-33.0); Mean Corpuscular Volume 83.6 fL (80.0-98.0); Mean Platelet Volume 8.9 fL (9.4-12.3); Monocytes Absolute Auto 0.9 X10*3/uL (0.1-1.2); Monocytes Percent Auto 6.3 % (2-11); Neutrophils Absolute Auto 10.7 x10*3/uL (2.0-8.3); Neutrophils Percent Auto 72.8 % (45-73); Platelet Count 280 X10*3/uL (160-400); Red Blood Count 4.56 X10*6/uL (4.20-5.50); Red Cell Distribution Width 15.1 % (11.0-16.0); White Blood Count 14.7 X10*3/uL (4.8-10.8)
[2024-05-21 13:29] LABS: Alanine Aminotransferase 16 U/L (0-31); Albumin Level 3.9 g/dL (3.5-5.0); Alkaline Phosphatase 84 U/L (39-117); Anion Gap 8 (12-20); Aspartate Amino Transferase 16 U/L (5-31); Bilirubin Direct 0.1 mg/dL (0.0-0.5); Bilirubin Total 0.4 mg/dL (0.0-1.0); Blood Urea Nitrogen 10 mg/dL (9-16); Calcium 8.6 mg/dL (8.4-10.2); Carbon Dioxide 25 mmol/L (22-29); Chloride 109 mmol/L (96-108); Creatinine Clr Calc Pharmacy 92.3; Estimated Glomerular Filt Rate > 60; Glucose Random 86 mg/dL (60-115); Magnesium 1.6 mg/dL (1.6-2.6); Potassium 3.9 mmol/L (3.3-5.1); Sodium 138 mmol/L (135-145); Total Protein 7.5 g/dL (6.5-8.0)
== END 2024-05-21 20:28 | disposition left against medical advice (07) ==
LOC: HO.ED 20:27
PROVIDERS: Physician Assistant; Emergency Provider Emergency Medicine
DX: R42 Dizziness and giddiness (principal); R11.2 Nausea with vomiting, unspecified; Z79.899 Other long term (current) drug therapy; F17.210 Nicotine dependence, cigarettes, uncomplicated
CPT/HCPCS: 36415; 80048; 80076; 83735; 85025; 99281; 99283

== ENCOUNTER 2024-08-21 13:18 | Emergency (ER) | payer OTHER, SELFPAY ==
[2024-08-21 13:20] VITALS: BP 153/80; PULSE 72; RESP 20; TEMP 36.3; O2SAT 100; BMI 23.2
[2024-08-21 13:44] LABS: MANUAL DIFF FLAG NO
[2024-08-21 13:48] LABS: Basophils Absolute Auto 0.1 X10*3/uL (0.0-0.2); Basophils Percent Auto 0.5 % (0-2); Eosinophils Percent Auto 0.1 % (0-4); Hematocrit 37.7 % (37.0-47.0); Imm Gran Abs Auto 0.06 X10*3/uL (0.00-0.03); Imm Gran Pct Auto 0.5 % (0.0-0.4); Lymphocytes Absolute Auto 2.8 X10*3/uL (1.2-4.9); Lymphocytes Percent Auto 25.5 % (20-40); Mean Corpuscular HGB Conc 31.8 g/dl (31.0-35.0); Mean Corpuscular Hemoglobin 27.3 pg (27.0-33.0); Mean Corpuscular Volume 85.9 fL (80.0-98.0); Mean Platelet Volume 8.9 fL (9.4-12.3); Monocytes Absolute Auto 0.7 X10*3/uL (0.1-1.2); Neutrophils Absolute Auto 7.5 x10*3/uL (2.0-8.3); Neutrophils Percent Auto 67.4 % (45-73); Platelet Count 293 X10*3/uL (160-400); Red Blood Count 4.39 X10*6/uL (4.20-5.50); Red Cell Distribution Width 14.3 % (11.0-16.0); White Blood Count 11.1 X10*3/uL (4.8-10.8)
[2024-08-21 14:03] LABS: Alanine Aminotransferase 24 U/L (0-31); Albumin Level 3.8 g/dL (3.5-5.0); Alkaline Phosphatase 79 U/L (39-117); Anion Gap 8 (12-20); Aspartate Amino Transferase 24 U/L (5-31); Bilirubin Total 0.2 mg/dL (0.0-1.0); Blood Urea Nitrogen 15 mg/dL (9-16); Carbon Dioxide 27 mmol/L (22-29); Chloride 109 mmol/L (96-108); Creatinine Clr Calc Pharmacy 84.2; Estimated Glomerular Filt Rate > 60; Glucose Random 92 mg/dL (60-115); Potassium 4.2 mmol/L (3.3-5.1); Sodium 140 mmol/L (135-145); Total Protein 7.4 g/dL (6.5-8.0)
--- NOTE | 2024-08-21 20:26 | ED.GENADULT ---
HPI - General Adult General Chief complaint: Nausea/Vomiting/Diarrhea Stated complaint: abd pain Related Data Previous Rx's ?Medication ?Instructions ?Recorded omeprazole 20 mg capsule,delayed 20 mg PO DAILY #30 caps 02/06/23 release mesalamine 0.375 gram 1.5 g (4 x 0.375 gram) PO DAILY 30 03/18/23 capsule,extended release 24 hr days #120 caps (Apriso) doxycycline hyclate 100 mg tablet 100 mg PO BID 7 days #14 tabs 05/18/24 mesalamine 0.375 gram 1.5 g (4 x 0.375 gram) PO DAILY 05/18/24 capsule,extended release 24 hr #14 caps Allergies Allergy/AdvReac Type Severity Reaction Status Date / Time No Known Allergies Allergy Verified 08/21/24 13:22 [No Known Allergies*] [facility] Past Medical History Medical History IUD contraception Abdominal pain Surgical History History of esophagogastroduodenoscopy (EGD) Hx of colonoscopy History of dental surgery History of dental surgery Family History Family History Father Diabetes Hyperlipemia Mother HTN (hypertension) Maternal Aunt Colon cancer Social History Social History Household Members Other:: in relationship, 14 y/o girl Alcohol intake: never Patient Tobacco Use Status: Current everyday Tobacco user Tobacco use type: Cigarette Cigarettes Per Day: 6 Substance Use Type: Marijuana Advance Directives: No Advance Directives Information Provided: Yes Current occupational status: unemployed Physical Exam ED Vital Signs: Vital Signs - 24 hr 08/21/24 13:20 Temperature 97.4 F Pulse Rate 72 Respiratory Rate 20 Blood Pressure 153/80 H Pulse Oximetry 100 Oxygen Delivery Method Room Air BMI result Body Mass Index 23.2 Course Course Course Narrative: This is a rapid medical exam performed by Kelby Garcia NP: Additional HPI, ROS, PE not included below will be deferred to primary provider. Patient is a 38-year-old female presenting to the ED with complaint of diarrhea which began yesterday. Also reports tenderness to perineal area, reports cyst, aggravated by diarrhea. Denies fevers. Plan: basic labs Medical Decision Making Lab Data 08/21/24 13:39 08/21/24 13:39 Labs: Lab Results 08/21/24 Range/Units 13:39 WBC 11.1 H (4.8-10.8) X10*3/uL RBC 4.39 (4.20-5.50) X10*6/uL Hgb 12.0 (12.0-16.0) g/dl Hct 37.7 (37.0-47.0) % MCV 85.9 (80.0-98.0) fL MCH 27.3 (27.0-33.0) pg MCHC 31.8 (31.0-35.0) g/dl RDW 14.3 (11.0-16.0) % Plt Count 293 (160-400) X10*3/uL MPV 8.9 L (9.4-12.3) fL Immature Gran % (Auto) 0.5 H (0.0-0.4) % Neut % (Auto) 67.4 (45-73) % Lymph % (Auto) 25.5 (20-40) % [place] % (Auto) 6.0 (2-11) % Eos % (Auto) 0.1 (0-4) % Baso % (Auto) 0.5 (0-2) % Lymph # (Auto) 2.8 (1.2-4.9) X10*3/uL [place] # (Auto) 0.7 (0.1-1.2) X10*3/uL Eos # (Auto) 0.0 (0.0-0.4) X10*3/uL Baso # (Auto) 0.1 (0.0-0.2) X10*3/uL Abs Immat Gran (auto) 0.06 H (0.00-0.03) X10*3/uL Absolute Neuts (auto) 7.5 (2.0-8.3) x10*3/uL Absolute Nucleated RBC 0.000 (0.0-0.012) X10*3/uL Nucleated RBC % (auto) 0.0 (0.0-0.2) /100WBC Sodium 140 (135-145) mmol/L Potassium 4.2 (3.3-5.1) mmol/L Chloride 109 H (96-108) mmol/L Carbon Dioxide 27 (22-29) mmol/L Anion Gap 8 L (12-20) BUN 15 (9-16) mg/dL Creatinine 0.79 (0.5-1.4) mg/dL Estim Creat Clear Calc 84.2 Estimated GFR > 60 Random Glucose 92 (60-115) mg/dL Calcium 9.0 (8.4-10.2) mg/dL Total Bilirubin 0.2 (0.0-1.0) mg/dL AST 24 (5-31) U/L ALT 24 (0-31) U/L Alkaline Phosphatase 79 (39-117) U/L Total Protein 7.4 (6.5-8.0) g/dL Albumin 3.8 (3.5-5.0) g/dL Discharge Plan Discharge Clinical Impression: Diagnosis unknown Patient Disposition: Left W/O Completing Treatment Prescriptions: No Action doxycycline hyclate 100 mg tablet 100 mg PO BID 7 Days Qty: 14 0RF mesalamine 0.375 gram capsule,extended release 24hr 1.5 g PO DAILY Qty: 14 0RF omeprazole 20 mg capsule,delayed release(DR/EC) 20 mg PO DAILY Qty: 30 5RF mesalamine [Apriso] 0.375 gram capsule,extended release 24hr 1.5 g PO DAILY 30 Days Qty: 120 3RF Discharge Date/Time: 08/21/24 20:35
== END 2024-08-21 20:35 | disposition left against medical advice (07) ==
PROVIDERS: Emergency Provider Emergency Medicine
DX: R10.9 Unspecified abdominal pain (principal); R19.7 Diarrhea, unspecified
CPT/HCPCS: 36415; 80053; 85025; 99281; 99283